=== PATIENT | male | born 1990 | race Caucasian/White ===

== ENCOUNTER 2019-11-21 20:51 | Inpatient (IN) | payer OTHER ==
[~2019-11-21] VITALS: Ht 172.7 cm; Wt 56.2 kg
[2019-11-21] MEDS ORDERED: SODIUM CHLORIDE 0.9% 1000ML 1,000 ML IV STA (21:34)
[2019-11-21] MEDS ORDERED: VANCOMYCIN 1GM/NS 250 ML 250 ML IV STA (21:34)
[2019-11-21] MEDS ORDERED: SODIUM CHLORIDE 0.9% 1000ML 1,000 ML IV SCH (21:45)
[2019-11-21] MEDS ORDERED: CEFTRIAXONE SOD 1 GM/NS 50 ML 50 ML IV ONE (21:45)
[2019-11-21] MEDS ORDERED: ACETAMINOPHEN 325 MG SUPP ONE (22:08)
[2019-11-21] MEDS ORDERED: ACETAMINOPHEN 650 MG SUPP PR ONE (22:08)
[2019-11-21 22:49] LABS: BASOPHILS # (AUTO) 0.1 (0.0-0.1); BASOPHILS % 0.2 % (0.0-1.0); EOSINOPHILS # (AUTO) 0.2 (0.0-0.4); EOSINOPHILS % 0.8 % (0.0-6.0); HEMATOCRIT 35.3 % (38.2-49.6); LYMPHOCYTES % 9.8 % (18.0-39.1); MEAN CORPUSCULAR HEMOGLOBIN 29.6 pg (28-32); MEAN CORPUSCULAR VOLUME 86.9 fL (81-99); MONOCYTES # (AUTO) 1.3 (0.2-0.8); MONOCYTES % 6.4 % (4.4-11.3); NEUTROPHILS # (AUTO) 16.7 (2.1-6.9); NEUTROPHILS % 82.2 % (38.7-80.0); PLATELET COUNT 375 x10e3/uL (140-360); RED BLOOD COUNT 4.06 x10e6/uL (4.3-5.7); RED CELL DISTRIBUTION WIDTH 13.8 % (11.7-14.4)
[2019-11-21 23:05] LABS: ALANINE AMINOTRANSFERASE 130 IU/L (0-55); ALBUMIN 3.7 g/dL (3.5-5.0); ALBUMIN/GLOBULIN RATIO 0.7 (0.8-2.0); ALKALINE PHOSPHATASE 167 IU/L (40-150); ANION GAP 19.9 mmol/L (8-16); BLOOD UREA NITROGEN 38 mg/dL (7-26); BUN/CREATININE RATIO 56 (6-25); CALCIUM 10.6 mg/dL (8.4-10.2); CARBON DIOXIDE 24 mmol/L (22-29); CHLORIDE 95 mmol/L (98-107); CREATININE, SERUM 0.68 mg/dL (0.72-1.25); EST GLOMERULAR FILTRATION RATE > 60 ML/MIN (60-); GLUCOSE 121 mg/dL (74-118); POTASSIUM 3.9 mmol/L (3.5-5.1); SODIUM 135 mmol/L (136-145)
[2019-11-21 23:23] LABS: CLARITY,URINE CLEAR (CLEAR); COLOR,URINE YELLOW (YELLOW)
[2019-11-21 23:24] LABS: BACTERIA,URINE RARE /HPF; BILIRUBIN,URINE NEGATIVE (NEGATIVE); EPITHELIAL CELLS,URINE FEW /LPF; KETONES,URINE NEGATIVE (NEGATIVE); LEUKOCYTE ESTERASE ,URINE NEGATIVE (NEGATIVE); NITRITE,URINE NEGATIVE (NEGATIVE); PROTEIN,URINE DIPSTICK NEGATIVE (NEGATIVE); URINE UROBILINOGEN 0.2 mg/dL (0.2 - 1)
[2019-11-22] VITALS (7 sets, daily range): BP systolic 111–129; BP diastolic 71–89
--- NOTE | 2019-11-22 00:26 | Diagnostic Imaging Report ---
EXAMINATION: CHEST SINGLE (PORTABLE) INDICATION: Fever, hypertension COMPARISON: None FINDINGS: TUBES and LINES: Tracheostomy tube in place, tip projects in the mid intrathoracic trachea. LUNGS: Normal lung volumes. Slightly elevated left hemidiaphragm. Mild central bronchial wall thickening. No consolidations. PLEURA: No pleural effusion or pneumothorax. HEART AND MEDIASTINUM: The cardiomediastinal silhouette is unremarkable. BONES AND SOFT TISSUES: No acute osseous lesion. Soft tissues are unremarkable. UPPER ABDOMEN: No free air under the diaphragm. IMPRESSION: Subtle findings which can be seen with bronchitis. Signed by: Rudy Skelton DO on 11/22/2019 12:24 AM
[2019-11-22] MEDS ORDERED: METOPROLOL TARTRATE INJ 1 MG/ML VIAL IV ONE ×3 (01:15→05:30)
[2019-11-22] MEDS ORDERED: IOPAMIDOL 370 MG/ML 200 ML INFUS..BTL INJ ONE (01:59)
[2019-11-22] MEDS ORDERED: SODIUM CHLORIDE 0.9% 50ML 50 ML ONE (01:59)
--- OUTSIDE RECORDS SUMMARY | 2019-11-22 02:10 | XMS REPORT ---
[facility] Address Unknown Phone Unavailable Care Team Providers Care [employer] Name Role Phone PATRIZIA NICOLAS Unavailable Unavailable Problems This patient has no known problems. Allergies, Adverse Reactions, Alerts This patient has no known allergies or adverse reactions. Medications This patient has no known medications. Results Test Description Test Time Test Comments Text Results Atomic Results Result Comments CHEST SINGLE (PORTABLE) 2019-11-22 00:23:00 [facility] [address] [address] Patient Name: FAVIAN DUKE MR #: [id number] : 1990 Age/Sex: 29/M Req #: [id number] Adm Physician: Ordered by: PATRIZIA NICOLAS DO Report #: [id number] Location: ER Room/Bed: Procedure: [id number] DX/CHEST SINGLE (PORTABLE) Exam Date: 11/21/19 Exam Time: 2237 REPORT STATUS: Signed EXAMINATION: CHEST SINGLE (PORTABLE) I NDICATION: Fever, hypertension COMPARISON: None FINDINGS: TUBES and LINES: Tracheostomy tube in place, tip projects in the mid intrathoracic trachea. LUNGS: Normal lung volumes. Slightly elevated left hemidiaphragm. Mild central bronchial wall thickening. No consolidations. PLEURA: No pleural effusion or pneumothorax. HEART AND MEDIASTINUM: The cardiomediastinal silhouette is unremarkable. BONES AND SOFT TISSUES: No acute osseous lesion. Soft tissues are unremarkable. UPPER ABDOMEN: No free air under the diaphragm. IMPRESSION: Subtle findings which can be seen with bronchitis. Signed by: Rudy Skelton DO on 11/22/2019 12:24 AM Dictated By: RUDY SKELTON DO Transcribed By: GLENNA on 11/22/1923 COPY TO: PATRIZIA NICOLSA DO
[2019-11-22] MEDS ORDERED: CEFTRIAXONE SOD 1 GM/NS 50 ML 50 ML IV ONE ×2 (03:30→06:46)
[2019-11-22] MEDS ORDERED: DEXAMETHASONE SOD PHOS INJ 4 MG/ML VIAL IV ONE (03:30)
[2019-11-22] MEDS ORDERED: METOPROLOL TARTRATE INJ 1 MG/ML VIAL ONE (03:31)
--- NOTE | 2019-11-22 04:02 | Diagnostic Imaging Report ---
EXAM: CT Abdomen and Pelvis WITH contrast INDICATION: Elevated LFTs , fever COMPARISON: None. TECHNIQUE: Abdomen and pelvis were scanned utilizing a multidetector helical scanner from the lung base to the pubic symphysis after administration of IV contrast. Coronal and sagittal reformations were obtained. Routine protocol was performed. Scan was performed when during portal venous phase. IV CONTRAST: 100 mL of Isovue 370 ORAL CONTRAST: None COMPLICATIONS: None RADIATION DOSE: Total DLP: 300 mGy*cm Estimated effective dose: (DLP x 0.015 x size factor) mSv CTDIvol has been reviewed. It is below the limits set by the Radiation Protocol Committee (RPC). Dose modulation, iterative reconstruction, and/or weight based adjustment of the mA/kV was utilized to reduce the radiation dose to as low as reasonably achievable. FINDINGS: LINES and TUBES: It contains gastrostomy tube, tip and balloon in the gastric lumen.. LOWER THORAX: Coarse reticular opacities in the lung bases. HEPATOBILIARY: No focal hepatic lesions. No biliary ductal dilation. GALLBLADDER: No radio-opaque stones or sludge. No wall thickening. SPLEEN: No splenomegaly. PANCREAS: No focal masses or ductal dilatation. ADRENALS: No adrenal nodules KIDNEYS/URETERS: Kidneys enhance symmetrically. No hydronephrosis. No cystic or solid mass lesions. No stones. GI TRACT: No abnormal distention, wall thickening, or evidence of bowel obstruction. Appendix is normal. PELVIC ORGANS/BLADDER: Unremarkable. LYMPH NODES: No lymphadenopathy. VESSELS: Unremarkable. PERITONEUM / RETROPERITONEUM: No free air or fluid. BONES: Healing nondisplaced right lower rib fractures. Unremarkable. SOFT TISSUES: Unremarkable. IMPRESSION: Subtle findings of aspiration in the lung bases. Signed by: Rudy Skelton DO on 11/22/2019 4:00 AM
--- NOTE | 2019-11-22 04:25 | Diagnostic Imaging Report ---
EXAMINATION: Head CT HISTORY: Fever, history of anoxic brain injury, elevated blood pressure COMPARISON: None. TECHNIQUE: Multidetector axial images were obtained without contrast, however the study was performed after recent contrast enhanced abdomen CT performed earlier on the same day from the foramen magnum to the vertex . The images were reconstructed using brain and bone algorithms. Thin section brain images were reformatted into coronal and sagittal planes. Image quality: Motion/streaking artifact limits the evaluation of the skull base and posterior cranial fossa. Dose modulation, iterative reconstruction, and/or weight based adjustment of the mA/kV was utilized to reduce the radiation dose to as low as reasonably achievable. FINDINGS: Parenchyma: 1. Overall poor colin-white matter differentiation, likely related to known anoxic brain injury. 2. No mass or hemorrhage. No CT evidence of acute territorial vascular insult. Extra-axial spaces:No abnormal density. No extra-axial fluid collections Brain volume: Generalized brain atrophy, more, suspected for patient's age, likely the sequela from anoxic brain injury. Ventricles: No hydrocephalus or displacement. Arteries: No density suggestive of thrombus. Dural sinuses: Opacified from recent intravenous contrast injection, grossly patent. Foramen magnum: No mass, Chiari malformation, or basilar invagination. Sella: No obvious mass. Paranasal/mastoid sinuses: Imaged portions unremarkable. Skull/Scalp: No lytic or blastic lesions. No fractures. IMPRESSION: 1. No acute intracranial abnormalities. Particularly no hemorrhage. 2. Moderate brain atrophy, more than what is expected for patient's age. 3. Poor colin-white matter differentiation as detailed above. Signed by: Dr. Gricelda Webb M.D. on 11/22/2019 4:22 AM
[2019-11-22] MEDS ORDERED: ACETAMINOPHEN 650 MG SUPP PR ONE (04:47)
[2019-11-22] MEDS ORDERED: ACETAMINOPHEN 325 MG SUPP ONE (04:47)
[2019-11-22] MEDS ORDERED: ACETAMINOP325 MG/10 PEG (09:46)
[2019-11-22] MEDS ORDERED: ALBUTEROL0.63 MG/3 INH (09:49)
[2019-11-22] MEDS ORDERED: ENOXAPARIN30 MG/0.3 SC (09:50)
[2019-11-22] MEDS ORDERED: FAMOTIDINE20 MG PEG (09:50)
[2019-11-22] MEDS ORDERED: LEVETIRACETAM500 MG PEG (09:51)
[2019-11-22] MEDS ORDERED: METOPROLOL TART50 MG PEG (09:52)
--- NOTE | 2019-11-22 12:19 | NUR ---
Nutrition Intervention Note RD Recommendation(s) for Physician: -TF recommendation via peg when medically feasible: Osmolite 1.2 at 10 ml/hr advance as tolerated to goal rate of 65 ml/hr with 60 ml every water flushed every 4 hours (1872 kcal, 86 gram protein, 1279 ml of fluid) -IVF management and flushes per MD. Plan of Care: RD following, monitoring for tolerance and adequacy. TF recs Nutrition reason for involvement: (peg tube) RD Assessment 11/22: 29 YOM seen within the IMCU. Pt was recently admitted, per nurse pt has trach and peg tube. Nurse reported the pt was on Novasource at 40 ml/hr with 300 ml of water flushed every 4 hours for 22 hours at his NH (1760 kcal, 80 gram protein). Nurse reported the pt does not have hx of dialysis and it is not reported in PMH. Renal labs WNL-will recommend standard formula for now, please re consult RD if renal labs become abnormal. Pt was seen resting, no family at bedside. No past weights in EMR. Will continue to monitor. Principal Problems/Diagnoses: PMH: IN Seizure Disorder Chronic Back Pain Anoxic brain injury/ oct 2019 GI: AbdL flat, soft LBM: not recorded Skin: no pressure ulcer recorded Labs: 11/21: Na 135, Cl 95, BUN 38, Creat .68, Gluc 121, Ca 10.6 Meds: keppra, pepcid Ht: 68 in Wt: 124 lbs BMI: 18.9 kg/m^2 IBW: 154 lbs Malnutrition Evaluation 11/22 The patient does not meet criteria for a specified degree of malnutrition at this time. Will re-evaluate at follow-up as appropriate. Energy intake: -chronic tube feeder Weight loss: -unable to evaluate Fat loss: Mild Muscle loss: Mild Nutrition Prescription (Diet Order): NPO Estimated Nutritional Needs: Calories:0423-4950 kcal/day (25- 35 kcal/kg/day) Weight used : CBW Protein : 56-84 protein/day (1-1.5 gram/kg/day ) Weight used: CBW Diet Adequacy: Not meeting calorie needs, Not meeting protein needs Diet Education Needs Assessment: Diet education not indicated, patient on temporary/transition diet. Nutrition Care Level: mod Nutrition Diagnosis: Inadequate energy intake related to medical condition as evidenced by the pts needs for peg tube to meet nutritional needs. Goal: Patient will meet 75-100% of estimated needs by follow up Progress: N/A Interventions: Composition, Rate, Route, IVF, Prescription medications, Monitoring/Evaluation: -Total energy intake, Total protein intake, Formula/Solution, IVF, Prescription medication Signed: Jenni Eduardo RD, LD
[2019-11-22] MEDS: METOPROLOL TARTRATE 50 MG TAB PEG SCH (16:41)
[2019-11-22] MEDS: LEVETIRACETAM ORAL SOLUTION 500 MG/5 ML SOLN PEG SCH (16:41)
[2019-11-23] VITALS (9 sets, daily range): BP systolic 121–139; BP diastolic 84–102
[2019-11-23] MEDS: METOPROLOL TARTRATE INJ 1 MG/ML VIAL IV PRN (01:29)
[2019-11-23] MEDS: METOPROLOL TARTRATE 50 MG TAB PEG SCH ×2 (10:00→16:44)
[2019-11-23] MEDS: LEVETIRACETAM ORAL SOLUTION 500 MG/5 ML SOLN PEG SCH ×2 (10:00→16:44)
[2019-11-23] MEDS: FAMOTIDINE 20 MG TAB PEG SCH (10:00)
[2019-11-23] MEDS: ENOXAPARIN 30 MG/0.3 ML SYR SC SCH (10:00)
[2019-11-23] MEDS: ACETAMINOPHEN 325 MG/10 ML UDC PEG PRN ×2 (10:00→16:46)
[2019-11-23] MEDS ORDERED: CEFTRIAXONE SOD 1 GM/NS 50 ML 50 ML IV SCH (10:45)
--- NOTE | 2019-11-23 13:15 | NUR ---
Visit made by the Spiritual Care Department Pastoral Visitor, Jamilah Coronado. Pt sleeping soundly and no family present. Pastoral Visitor left a card describing availability of retail pharmacist and instructions on how to contact a retail pharmacist. ITZEL VIEYRA [employer] Spiritual Care Department O: [phone] Pager: [phone] ([phone] number calling from)
[2019-11-23] MEDS: CEFEPIME 1GM/NS 0.9% 50 ML 50 ML IV SCH (18:35)
--- NOTE | 2019-11-23 20:34 | Consultation ---
DATE OF CONSULTATION: 11/23/2019 REASON FOR CONSULTATION: Fever, leukocytosis, concerned about infection, concerned about sepsis. HISTORY OF PRESENT ILLNESS: This patient who is a 29-year-old male back in October had anoxic encephalopathy episode. The pain is noncommunicative, contracted, and has been recently in the hospital on and off. The patient apparently has history of seizure, was treated prophylactic with Keppra. The patient who is encephalopathic does not really provide any further information, but according to the record, the patient has been in the hospital for some time with fever, leukocytosis, and had extensive workup, all was negative. I was asked to see him. The patient was in the group home, transferred here with fever and chills as mentioned above. No family at the bedside. Apparently, had a history of noncompliance before. Apparently, he had recently anoxic brain injury. PAST MEDICAL HISTORY: As above. PAST SURGICAL HISTORY: As above. ALLERGIES: NKA. SOCIAL HISTORY: Currently, there is no smoking, drug abuse, or alcohol abuse. FAMILY HISTORY: Could not be obtained. REVIEW OF SYSTEMS: Could not be obtained. He is totally confused. According to nursing team, there is no rash and no swelling or redness. He has very superficial ulcer that is also on the buttock area contraction. There is no diarrhea. ALLERGIES: PENICILLIN, BUT NOT SURE WHAT HAPPENED. LABORATORY DATA: White count 20.29, hemoglobin 12, hematocrit 35, his platelets 375. The diff showing he has monos 1.3, eosinophils 0.2. Sodium 135 potassium 3.9, glucose 121. ALT 80, AST 80. Influenza A/B is negative. Blood cultures, no growth in [address] He had a [address] of abdomen and pelvis, which showed possibly aspiration pneumonia, but otherwise unremarkable. PHYSICAL EXAMINATION: GENERAL: Noncommunicative. VITAL SIGNS: Stable, running fever. HEENT: Not icteric. NECK: Supple. CHEST: A few crackles bilateral at the bases. COR: S1, S2. No murmur. ABDOMEN: Soft. Bowel sounds present. No tenderness. EXTREMITIES: No edema. SKIN: No rash. IMPRESSION: Fever, leukocytosis, concerned about infection, but the aspiration pneumonia does not seem to be too massive. We will put him back on vancomycin and cefepime. We will get the blood cultures. I am concerned if it could be drug related to Keppra. I suggested discontinuing Keppra. Neurology was consulted. Consider to workup for seizure. We will follow with you depending on blood cultures and clinical progress since I stopped the Keppra. We will get CBC with manual diff. We will also obtain amylase and lipase. We will follow. MD OSMAR Parsons/MODMando /[id number]
[2019-11-23] MEDS: VANCOMYCIN 1GM/NS 250 ML 250 ML IV SCH (21:26)
--- NOTE | 2019-11-23 22:27 | NUR ---
PT IS TRANSFERRED FROM [facility] .PT IS APHASIC LETHARGIC .BARLEY EYES OPEN .PT HAS PEG TUBE OSMOLITE RUNNING AT 45 ML/HR /PT HAS TRACH .SACRUM UNSTABLE .ON AUSCULTATION SOUNDS BRONCHI .CALL LIHT WITH IN REACH .CONTINUE TO MONITOR
--- NOTE | 2019-11-23 23:10 | NUR ---
patient transferred to [facility]
[2019-11-24] VITALS (8 sets, daily range): BP systolic 116–171; BP diastolic 73–97
[2019-11-24] MEDS: ACETAMINOPHEN 325 MG/10 ML UDC PEG PRN (00:04)
[2019-11-24] MEDS ORDERED: SODIUM CHLORIDE 0.9% 250ML 250 ML ONE (01:48)
[2019-11-24] MEDS: METOPROLOL TARTRATE INJ 1 MG/ML VIAL IV PRN (02:01)
--- NOTE | 2019-11-24 05:59 | NUR ---
PT HAD TEM 101.7 AND GIVEN LIQUID TYLENOL AND TEM REDUCED TO 99.7 .SUCTIONED BY THE RT .PEG TUBE INTACT AND TOLERATING THE FEEDING SACRUM UN STAGEABLE .CALL LIGHT WITH IN REACH .CONTINUE TO MONITOR
[2019-11-24] MEDS: CEFEPIME 1GM/NS 0.9% 50 ML 50 ML IV SCH ×2 (06:00→16:59)
--- NOTE | 2019-11-24 07:29 | NUR ---
BEDSIDE REPORT GIVEN TO THE ONCOMING NURSE
[2019-11-24 08:47] LABS: BASOPHILS # (AUTO) 0.1 (0.0-0.1); BASOPHILS % 0.5 % (0.0-1.0); EOSINOPHILS # (AUTO) 0.1 (0.0-0.4); EOSINOPHILS % 0.9 % (0.0-6.0); HEMATOCRIT 32.9 % (38.2-49.6); HEMOGLOBIN 11.1 g/dL (14.0-18.0); LYMPHOCYTES # (AUTO) 1.9 (1.0-3.2); LYMPHOCYTES % 17.7 % (18.0-39.1); MEAN CORPUSCULAR HEMOGLOBIN 29.8 pg (28-32); MEAN CORPUSCULAR HGB CONC 33.7 g/dL (31-35); MEAN CORPUSCULAR VOLUME 88.4 fL (81-99); MONOCYTES # (AUTO) 0.9 (0.2-0.8); MONOCYTES % 8.5 % (4.4-11.3); NEUTROPHILS # (AUTO) 7.8 (2.1-6.9); NEUTROPHILS % 72.2 % (38.7-80.0); PLATELET COUNT 253 x10e3/uL (140-360); RED BLOOD COUNT 3.72 x10e6/uL (4.3-5.7)
[2019-11-24] MEDS: ACETAMINOPHEN 650 MG SUPP PR PRN ×2 (08:47→17:20)
[2019-11-24] MEDS: VANCOMYCIN 1GM/NS 250 ML 250 ML IV SCH ×2 (09:00→21:15)
[2019-11-24] MEDS: ENOXAPARIN 30 MG/0.3 ML SYR SC SCH (09:02)
[2019-11-24] MEDS: FAMOTIDINE 20 MG TAB PEG SCH (09:02)
[2019-11-24] MEDS: METOPROLOL TARTRATE 50 MG TAB PEG SCH ×2 (09:02→17:00)
[2019-11-24 09:07] LABS: BLOOD UREA NITROGEN 23 mg/dL (7-26); BUN/CREATININE RATIO 40 (6-25); CALCIUM 9.7 mg/dL (8.4-10.2); CARBON DIOXIDE 24 mmol/L (22-29); CHLORIDE 108 mmol/L (98-107); CREATININE, SERUM 0.57 mg/dL (0.72-1.25); EST GLOMERULAR FILTRATION RATE > 60 ML/MIN (60-); GLUCOSE 130 mg/dL (74-118); SODIUM 143 mmol/L (136-145); VANCOMYCIN,TROUGH 4.5 ug/mL (5.0-10.0)
--- NOTE | 2019-11-24 12:32 | Diagnostic Imaging Report ---
EXAM: US LIVER DATE: 11/24/2019 12:00 AM INDICATION: Elevated LFTs COMPARISON: CT abdomen/pelvis from 11/22/2019 FINDINGS: The visualized pancreas appears unremarkable. The liver is normal in size measuring 15.6 cm in length. Hepatic echogenicity is within normal limits. No focal hepatic abnormality is identified. The main portal vein is patent with antegrade flow and diameter of 0.9 cm, within normal limits. The gallbladder is unremarkable. There is no evidence for cholelithiasis, gallbladder wall thickening, or pericholecystic fluid. There is no intra or extra hepatic biliary ductal dilatation. The common bile duct measures 4 mm. Sonographic Hamilton's sign is negative. The right kidney is normal in size measuring 11.9 cm in length with normal cortical thickness and echogenicity. There is no evidence for solid renal mass, hydronephrosis, or shadowing calculi. The visualized portions the IVC and aorta are within normal limits. There is no ascites visualized within the right upper quadrant. IMPRESSION: Unremarkable right upper quadrant ultrasound examination. Signed by: Dr. Josiah Lopez MD on 11/24/2019 12:30 PM
--- NOTE | 2019-11-24 19:58 | NUR ---
RECEIVED PT IN BED .APHASIC .OPEN EYES .PT IS ON TUBE FEEDING AND TRACH ,CALL LIGHT WITH IN REACH .CONTINUE TO MONITOR
[2019-11-25] VITALS (8 sets, daily range): BP systolic 115–143; BP diastolic 81–100
--- NOTE | 2019-11-25 01:13 | Consultation ---
DATE OF CONSULTATION: 11/24/2019 Neurology Consultation HISTORY OF PRESENT ILLNESS: A 29-year-old male I am seeing for anoxic brain injury secondary to overdose. Clear concern about the patient with possible underlying the patient is on Keppra 750 p.o. b.i.d. per PEG. He presents with fever, leukocytosis. Unable to give any past medical history, who is noncommunicative state. He has anoxic brain injury, diffuse cortical injury and is contracted throughout. The past medical history, social history, allergies, not able to the patient to his clinical status as his review of systems. PHYSICAL EXAMINATION: VITAL SIGNS: He is currently afebrile. His pulse is 86, his blood pressure is 134/78. GENERAL: He is contracted, diffuse contracted state. HEENT: His pupils are dilated at 4 mm, but reactive to light. His extraocular muscles wonder and they do not focus on the examiner did wonders spontaneously. He does not blink to threat. NECK: Somewhat increased tone. Trachea is midline. His arms are in flexed position and his legs are in extended position. Also increased tone. CARDIOVASCULAR: Regular rate and rhythm. PULMONARY: Clear. ABDOMEN: Soft, nontender. His PEG tube in place. SKIN: No rash is noted. There is significant muscle atrophy noted on exam. ASSESSMENT AND PLAN: I am seeing the patient for possible epilepsy as well as the neurocognitive dysfunction, the history of seizures and the question when he can be maintain on Keppra. May avoid the Keppra why because of the seizures. We are going to get an EEG. If the EEG is normal, I do think we can discontinue Keppra safely. I also get an MRI of the brain to evaluate for degree and extent of neurocognitive injury, so this time we are going to get an EEG one hour study and we are going to get a MRI of the brain without contrast to evaluate for cortical injury and we will go from there. LORAINE HINSON MD RR/MODL /[id number]
[2019-11-25] MEDS: CEFEPIME 1GM/NS 0.9% 50 ML 50 ML IV SCH ×2 (06:00→17:25)
[2019-11-25 06:33] LABS: ALBUMIN 3.1 g/dL (3.5-5.0); BILIRUBIN,DIRECT 0.2 mg/dL (0.0-0.5)
--- NOTE | 2019-11-25 06:38 | NUR ---
PT RESTING TOLERATING THE FEEDING AND INCREASED THE FEEDING TO 50 CC/HR .GIVEN BED BATH .CALL LIGHT WITH IN REACH .CONTINUE TO MONITOR
--- NOTE | 2019-11-25 06:59 | NUR ---
BEDSIDE REPORT GIVEN TO THE ONCOMING NURSE
[2019-11-25] MEDS: VANCOMYCIN 1GM/NS 250 ML 250 ML IV SCH (08:49)
[2019-11-25] MEDS: METOPROLOL TARTRATE 50 MG TAB PEG SCH ×2 (08:49→17:24)
[2019-11-25] MEDS: ENOXAPARIN 30 MG/0.3 ML SYR SC SCH (08:50)
[2019-11-25] MEDS: FAMOTIDINE 20 MG TAB PEG SCH (08:50)
--- NOTE | 2019-11-25 08:50 | NUR ---
s: no significant neuro changes vs: 110 121/81 98.1 GENERAL: He is contracted, diffuse contracted state with increased muscle tone HEENT: His pupils are dilated at 4 mm, but reactive to light. His extraocular muscles wonder and they do not focus on the examiner, they wander and saccade spontaneously. He does not blink to threat. NECK: Somewhat increased tone. Trachea is midline. His arms are in flexed position and his legs are in extended position. Also increased tone. CARDIOVASCULAR: Regular rate and rhythm. PULMONARY: Clear. ABDOMEN: Soft, nontender. His PEG tube in place. SKIN: No rash is noted. There is significant muscle atrophy noted on exam. a.p anoxic brai ninjury eeg - if not evidence of seizures continue to decrease AED tolerated initial decrease of keppra without issue mri brain pending outpt placement due toanoxic brain injury may consider hyperbaric therapy or transcranial direct current stimu botox for spasticity, splinting .
[2019-11-25] MEDS: LEVETIRACETAM ORAL SOLUTION 500 MG/5 ML SOLN PEG SCH ×2 (08:56→21:03)
[2019-11-25] MEDS: VANCOMYCIN HCL 1.5 GM in SODIUM CHLORIDE 0.9% 250ML 300 ML IV SCH ×2 (11:30→23:32)
--- NOTE | 2019-11-25 14:09 | Diagnostic Imaging Report ---
MRI BRAIN WO HISTORY: Anoxic brain injury COMPARISON: Head CT 11/22/2019 TECHNIQUE: Sagittal T2, axial T2, axial T1, axial T2/FLAIR, axial gradient echo (or susceptibility weighted), coronal T2/FLAIR, and axial diffusion weighted MR images of the brain were obtained without contrast. Motion artifacts obscure some details. DISCUSSION: Scalp/bone marrow: Unremarkable. Brain sulci: Prominent. Ventricles: Compensatory dilatation. The temporal horns are prominent. Extra-axial spaces: No masses or fluid collections. Parenchyma: Mild diffusion restriction (slightly bright on DWI, dark to isointense on ADC) throughout the bilateral cerebellar cortices, basal ganglia, occipital poles, and paracentral lobules is associated with corresponding T2/FLAIR hyperintensity. This is compatible with diffuse subacute cytotoxic edema/anoxic brain injury. There is associated T1 hyperintensity in the lentiform nuclei. There is no significant mass effect or brain herniation. Otherwise, no mass or hemorrhage is seen. Vessels: Normal flow voids in major arteries and veins. Sellar/Suprasellar region: No abnormalities. Craniocervical junction: No abnormalities. Incidental findings: Small bilateral mastoid effusions are present. IMPRESSION: 1. Mild diffuse cytotoxic edema throughout the bilateral cerebellar cortices, basal ganglia, occipital poles, and paracentral lobules is compatible with anoxic brain injury. No significant mass effect. 2. Mild generalized cerebral volume loss with disproportionate hippocampal volume loss. Signed by: Dr. Rich Wolf M.D. on 11/25/2019 2:06 PM
--- NOTE | 2019-11-25 19:10 | NUR ---
RECEIVED THE PATIENT IN REPORT.LYEING IN THE BED.EYES OPEN .ON TRAC.COLLAR.TELEMONITOR AND CONTD.PULSE OXY IN PLACE.
[2019-11-25] MEDS: METOPROLOL TARTRATE INJ 1 MG/ML VIAL IV PRN (23:30)
[2019-11-26] VITALS (7 sets, daily range): BP systolic 119–139; BP diastolic 75–91
[2019-11-26] MEDS: ACETAMINOPHEN 650 MG SUPP PR PRN (00:18)
--- NOTE | 2019-11-26 00:46 | NUR ---
Had a small amount of Bowelmovement.cleaned and diaper changed.applied allevyn foam on sacral wound.on peg tube feeding.tolerates well.frequently doing suction.keep monitor the patient.
--- NOTE | 2019-11-26 01:00 | NUR ---
NEW IV STARTED TO RAC#20 G.TEMP.NOTED 99.5
[2019-11-26] MEDS: CEFEPIME 1GM/NS 0.9% 50 ML 50 ML IV SCH ×2 (05:47→16:20)
--- NOTE | 2019-11-26 06:00 | NUR ---
Residual checked.nothing.tolerate the feed.
--- NOTE | 2019-11-26 07:00 | NUR ---
Bed side shift report given to oncoming Rn.
[2019-11-26] MEDS: METOPROLOL TARTRATE 50 MG TAB PEG SCH ×2 (08:16→16:20)
[2019-11-26] MEDS: LEVETIRACETAM ORAL SOLUTION 500 MG/5 ML SOLN PEG SCH (08:16)
[2019-11-26] MEDS: FAMOTIDINE 20 MG TAB PEG SCH (08:17)
[2019-11-26] MEDS: ENOXAPARIN 30 MG/0.3 ML SYR SC SCH (08:17)
--- NOTE | 2019-11-26 09:55 | NUR ---
eeg report: 20 min study reviewed in bipolar, transverse and referential montage. 10/20 international electrode placement system used EEG - 3-5 hz diffuse slow pattern with poor reactivity throughout, attenuated <20 mV with intermittnet higher amplitude delta waves EEG interprestation This eeg shows generalized attenuated diffuse slow pattern. Consistant with severe encephalopathy and possibly comatose vs vegetative state, but no epileptogenicity is noted
--- NOTE | 2019-11-26 09:59 | NUR ---
s: no acute events discussed case w/ father at length Vs: 109 99.9 128/90 tachycardic cta trached eomi pupils 5mm but react to direct light face symmetric does not track or look towards flashing light increased muscle tone in neck arms and legs toes upgpoing does not follow commands a/p anoxic brain injury, cerebellar injury, occipital and temporal lobe atrophy discussed case w/ family at length, patient in persistant vegetative state but may reach a degree of cognizance w/ time and therapy discussed transcranial direct current stim amantadien, dopaminergics, depakote, stimulants, ambien as therapeutic options but won't initiate at this time. discussed [facility] as rehab recovery option EEG negative for seizure dc keppra patient iwll need 24 hour care, likely best case scenario, severe visual deficit, motor dysfunction and memory difficulty
[2019-11-26] MEDS: VANCOMYCIN HCL 1.5 GM in SODIUM CHLORIDE 0.9% 250ML 300 ML IV SCH ×2 (11:30→23:40)
[2019-11-26] MEDS: ACETAMINOPHEN 325 MG/10 ML UDC PEG PRN (16:20)
--- NOTE | 2019-11-26 18:01 | NUR ---
Nutrition Intervention Note RD Recommendation(s) for Physician: Osmolite 1.2 is currently out of stock; therefore, Osmolite 1.0 is being substituted in the meantime. Recommend Osmolite 1.0 @ goal rate of 80 mL/hr (provides 1920 kcal, 85 g protein, and 1617 mL water) -When Osmolite 1.2 is in stock, recommend goal rate of 65 mL/hr (provides 1872 kcal, 87 g protein, and 1279 mL) -IVF management and water flushes per MD. Plan of Care: RD following, monitoring for tolerance and adequacy. Nutrition reason for involvement: follow up RD Assessment 11/26: Follow up. Pt has been tolerating tube feeding per RN note. Osmolite 1.2 is currently out of stock; therefore, Osmolite 1.0 is being substituted in the meantime. Recommend Osmolite 1.0 @ goal rate of 80 mL/hr until Osmolite 1.2 is in stock. Informed RN. Will continue to monitor. 11/22: 29 YOM seen within the IMCU. Pt was recently admitted, per nurse pt has trach and peg tube. Nurse reported the pt was on Novasource at 40 ml/hr with 300 ml of water flushed every 4 hours for 22 hours at his NH (1760 kcal, 80 gram protein). Nurse reported the pt does not have hx of dialysis and it is not reported in PMH. Renal labs WNL-will recommend standard formula for now, please re consult RD if renal labs become abnormal. Pt was seen resting, no family at bedside. No past weights in EMR. Will continue to monitor. Principal Problems/Diagnoses: PMH: ND, Seizure Disorder, Chronic Back Pain, Anoxic brain injury/ oct 2019 GI: abdomen soft, non-tender LBM: not recorded Skin: unstageable pressure ulcer -sacrum Labs: 11/26: Na 143, BUN 23, Creat 0.57, Glu 130 11/21: Na 135, Cl 95, BUN 38, Creat .68, Gluc 121, Ca 10.6 Meds: metroprolol, vancomycin, NaCl Ht: 68 in Wt: 124 lbs BMI: 18.9 kg/m^2 IBW: 154 lbs Malnutrition Evaluation 11/22 The patient does not meet criteria for a specified degree of malnutrition at this time. Will re-evaluate at follow-up as appropriate. Energy intake: -chronic tube feeder Weight loss: -unable to evaluate Fat loss: Mild Muscle loss: Mild Nutrition Prescription (Diet Order): NPO Estimated Nutritional Needs: Calories:5950-1691 kcal/day (25- 35 kcal/kg/day) Weight used : CBW Protein : 56-84 protein/day (1-1.5 gram/kg/day ) Weight used: CBW Diet Adequacy: current tube feed order does not meet pt's calorie and protein needs Diet Education Needs Assessment: Diet education not indicated, patient on temporary/transition diet. Nutrition Care Level: moderate Nutrition Diagnosis: Inadequate energy intake related to medical condition as evidenced by the pts needs for peg tube to meet nutritional needs. Goal: Patient will meet 75-100% of estimated needs by follow up Progress: progressing Interventions: TF - Composition, Rate, Route Monitoring/Evaluation: -Total energy intake, Total protein intake, Formula/Solution Signed: Argentina Marino RD, LD
--- NOTE | 2019-11-26 19:05 | NUR ---
RECEIVED THE PATIENT IN REPORT.LYEING IN THE BED.NO RESP.DISTRESS NO PAIN VOICED.BED LOCKED AND IN LOWEST POSITION.PHONE AND CALL LIGHT WITHIN REACH.INSTRUCTED TO CALL FOR ASSISTANCE NEEDED.STABLE CONDITION. Addendum: 11/26/19 at 2002 by Jaclyn Morocho RN ERROR
--- NOTE | 2019-11-26 19:10 | NUR ---
RECEIVED THE PATIENT IN REPORT.LYEING IN THE BED.NO RESP.DISTRESS .BED LOCKED AND IN LOWEST POSITION.PHONE AND CALL LIGHT WITHIN REACH.ON TRACH COLLAR.OSMOLITE RUNNING @ 55ML/HR.KEEP MONITOR THE PATIENT.
[2019-11-26] MEDS: METOPROLOL TARTRATE INJ 1 MG/ML VIAL IV PRN (21:45)
--- NOTE | 2019-11-26 23:48 | NUR ---
Patient is non communicative,contracted.had a small amount of bowel movement.cleansed,diaper changed.allevyn foam changed.tolerates tube feeding.
[2019-11-27] VITALS (7 sets, daily range): BP systolic 116–139; BP diastolic 72–90
[2019-11-27] MEDS: ACETAMINOPHEN 325 MG/10 ML UDC PEG PRN ×2 (04:45→22:37)
[2019-11-27] MEDS: CEFEPIME 1GM/NS 0.9% 50 ML 50 ML IV SCH ×2 (06:08→18:32)
[2019-11-27] MEDS: METOPROLOL TARTRATE INJ 1 MG/ML VIAL IV PRN (06:17)
--- NOTE | 2019-11-27 07:00 | NUR ---
BED SIDE SHIFT REPORT GIVEN TO ONCOMING RN.STABLE CONDITION.
--- NOTE | 2019-11-27 07:05 | NUR ---
RECEIVED BEDSIDE REPORT FROM NIGHT NURSE. PATIENT RESTING AT THIS TIME, NO VISIBLE SIGNS OF DISTRESS NOTED. TRACH WITH COLLAR IN PLACE, CALL LIGHT WITHIN REACH.
[2019-11-27] MEDS: METOPROLOL TARTRATE 50 MG TAB PEG SCH ×2 (10:08→18:31)
[2019-11-27] MEDS: ENOXAPARIN 30 MG/0.3 ML SYR SC SCH (10:08)
[2019-11-27] MEDS: FAMOTIDINE 20 MG TAB PEG SCH (10:08)
[2019-11-27] MEDS: VANCOMYCIN HCL 1.5 GM in SODIUM CHLORIDE 0.9% 250ML 300 ML IV SCH ×2 (12:15→23:19)
--- NOTE | 2019-11-27 16:52 | Progress Note ---
DATE: 11/27/2019 Internal Medicine Progress Note SUBJECTIVE: The patient is comatose. PHYSICAL EXAMINATION: VITAL SIGNS: Blood pressure 128/74, temperature 99.7, heart rate is 117 per minute, respiratory rate is 22 per minute, oxygen saturation 100%. HEART: Showed regular rhythm. Normal S1, S2 sound. LUNGS: Clear bilaterally. ABDOMEN: Soft. Has a PEG tube in place. He had a tracheostomy in place. EXTREMITIES: Show decreased muscle mass on both legs. LABORATORY DATA: On the BMP; sodium 143, potassium 4.0, chloride 108, CO2 24, BUN 23, creatinine 0.57, glucose 130. CBC; white blood cell count 10.7, hemoglobin 11.1, hematocrit 32.9, platelet count 253,000. AST 59, ALT 57, total bilirubin 0.4, alkaline phosphatase 113. Hepatitis profile is negative. CT of the abdomen showed no significant abnormality. Chest x-ray showed no evidence of pneumonia. MRI of the brain showed evidence of anoxic encephalopathy due to findings of brain edema. IMPRESSION: 1. Anoxic encephalopathy. 2. Dysphagia, status post PEG tube placement. 3. Acute respiratory failure, status post tracheostomy. 4. Elevated liver function tests. 5. Acute bronchitis. PLAN OF TREATMENT: Continue oxygen through tracheostomy. Continue with a PEG tube feeding. Continue albuterol q.4 hours, cefepime 1 g IV q.12 hours, vancomycin 1 g IV twice a day, Lovenox 30 mg subcutaneously daily for DVT prophylaxis. Continue Tylenol 650 mg q.6 hours as needed for pain or fever, Pepcid 20 mg daily, metoprolol 10 mg IV q.6 hours as needed, metoprolol 50 mg twice a day, Tylenol 650 mg q.4 hours as needed, a heel protector. Labs have been reviewed. Production Editor reports have been reviewed. Time spent around 35 minutes. MD ASHLEIGH Stevens/STEPHANIE /[id number]
--- NOTE | 2019-11-27 17:20 | NUR ---
s: no acute events discussed case w/ father at length Vs: 102 98.9 128/90 tachycardic cta trached eomi pupils 5mm but react to direct light face symmetric does not track or look towards flashing light increased muscle tone in neck arms and legs toes upgpoing does not follow commands a/p anoxic brain injury, cerebellar injury, occipital and temporal lobe atrophy discussed case w/ family at length, patient in persistant vegetative state but may reach a degree of cognizance w/ time and therapy discussed transcranial direct current stim amantadien, dopaminergics, depakote, stimulants, ambien as therapeutic options but won't initiate at this time. discussed [facility] as rehab recovery option EEG negative for seizure dc keppra patient will need 24 hour care, likely best case scenario, severe visual deficit, motor dysfunction and memory difficulty
--- NOTE | 2019-11-27 19:10 | NUR ---
BEDSIDE SHIFT REPORT GIVEN TO ONCOMING NURSE. PATIENT RESTING IN BED WITH NO VISIBLE SIGNS OF DISTRESS NOTED AT THIS TIME. TRACH COLLAR IN PLACE. CALL LIGHT WITHIN REACH.
--- NOTE | 2019-11-27 19:14 | NUR ---
Received change of shift report from AM nurse. Walking rounds completed.
[2019-11-28] VITALS (46 sets, daily range): BP systolic 103–157; BP diastolic 71–104
--- NOTE | 2019-11-28 | NUR ---
Patient o2 sat drop to 80-90. Patient suctioned with inline suction system. Sats back up to 99%. Continue monitor. Reposition patient in bed with HOB elevated [id number]. HR up and down 102-130. Continue monitor. certified veterinary technician called.
[2019-11-28] MEDS: METOPROLOL TARTRATE INJ 1 MG/ML VIAL IV PRN ×2 (03:00→05:15)
--- NOTE | 2019-11-28 03:31 | NUR ---
Patient sat drop 40,50,60,70 and 80. Resp tech and Julia charge nurse called. Rapid called. S/W Dr Jung who is covering Haney. Orders received. Called Dr Blum as consult. Dr Dailey ER doctor s/w Dr Jung and Dr Blum. Patient to transfer to ICU
--- NOTE | 2019-11-28 03:53 | NUR ---
Rapid response called on patient. Due to o2 sat dropping. Called and s/w Dr Jung and received orders. called and informed pt will be moved to ICU 194.
--- NOTE | 2019-11-28 04:00 | NUR ---
RECEIVED FROM [facility] STATUS POST RAPID RESPONSE. PATIENT UNRESPONSIVE WITH ANOXIC BRAIN INJURY AT BASELINE. TRACHEOSTOMY CONNECTED TO VENTILATOR WITH SUBSEQUENT INCREASE IN OXYGEN SATURATION
--- NOTE | 2019-11-28 04:27 | Diagnostic Imaging Report ---
EXAMINATION: CHEST SINGLE (PORTABLE) COMPARISON: Chest x-ray 11/21/2019, CT abdomen 11/22/2019 INDICATION: ^low oxygen saturation ^[id number] ^0400 DISCUSSION: Frontal view of the chest obtained at 0356 hours. HEART AND MEDIASTINUM: The cardiomediastinal silhouette is unremarkable. LINES: Tracheostomy is midline LUNGS: The right lung is well-inflated and clear. New diffuse airspace opacities in the left mid and lower lung zones with stable mild elevation of the left diaphragm. PLEURA: No pleural effusion or pneumothorax. BONES AND SOFT TISSUES: No focal osseous lesion. The soft tissues are normal. IMPRESSION: New airspace opacities in the left lung may represent pneumonia in the appropriate clinical setting. Stable elevation of the left diaphragm. Signed by: Dr. Karla Gilbert MD on 11/28/2019 4:25 AM
--- NOTE | 2019-11-28 04:54 | NUR ---
Pulmonary/Critical Care [id number]
[2019-11-28] MEDS ORDERED: DEXTROSE 5% 1,000 ML IV SCH (05:00)
[2019-11-28 05:08] LABS: BASOPHILS # (AUTO) 0.1 (0.0-0.1); BASOPHILS % 0.4 % (0.0-1.0); EOSINOPHILS # (AUTO) 0.3 (0.0-0.4); HEMATOCRIT 35.9 % (38.2-49.6); HEMOGLOBIN 12.1 g/dL (14.0-18.0); LYMPHOCYTES # (AUTO) 1.6 (1.0-3.2); LYMPHOCYTES % 12.6 % (18.0-39.1); MEAN CORPUSCULAR HEMOGLOBIN 29.8 pg (28-32); MEAN CORPUSCULAR HGB CONC 33.7 g/dL (31-35); MEAN CORPUSCULAR VOLUME 88.4 fL (81-99); MONOCYTES # (AUTO) 0.7 (0.2-0.8); MONOCYTES % 5.5 % (4.4-11.3); NEUTROPHILS # (AUTO) 10.1 (2.1-6.9); NEUTROPHILS % 78.9 % (38.7-80.0); PLATELET COUNT 365 x10e3/uL (140-360); RED BLOOD COUNT 4.06 x10e6/uL (4.3-5.7); RED CELL DISTRIBUTION WIDTH 14.5 % (11.7-14.4)
[2019-11-28] MEDS ORDERED: LACTATED RINGER'S 1,000 ML ONE (05:13)
[2019-11-28] MEDS ORDERED: LACTATED RINGER'S 1,000 ML IV ONE (05:15)
[2019-11-28 05:29] LABS: ALANINE AMINOTRANSFERASE 94 IU/L (0-55); ALBUMIN 3.3 g/dL (3.5-5.0); ALBUMIN/GLOBULIN RATIO 0.8 (0.8-2.0); ALKALINE PHOSPHATASE 133 IU/L (40-150); ANION GAP 14.7 mmol/L (8-16); BLOOD UREA NITROGEN 29 mg/dL (7-26); BUN/CREATININE RATIO 51 (6-25); CALCIUM 9.5 mg/dL (8.4-10.2); CARBON DIOXIDE 21 mmol/L (22-29); CHLORIDE 107 mmol/L (98-107); CREATININE, SERUM 0.57 mg/dL (0.72-1.25); EST GLOMERULAR FILTRATION RATE > 60 ML/MIN (60-); GLUCOSE 131 mg/dL (74-118); POTASSIUM 3.7 mmol/L (3.5-5.1); SODIUM 139 mmol/L (136-145)
[2019-11-28] MEDS: CEFEPIME 1GM/NS 0.9% 50 ML 50 ML IV SCH ×2 (05:47→17:40)
[2019-11-28] MEDS: METOPROLOL TARTRATE 50 MG TAB PEG SCH ×2 (06:21→17:39)
[2019-11-28 07:32] LABS: THYROID STIMULATING HORMONE 2.253 uIU/mL (0.350-4.940)
[2019-11-28] MEDS: FAMOTIDINE 20 MG TAB PEG SCH (08:32)
[2019-11-28] MEDS: ACETAMINOPHEN 325 MG/10 ML UDC PEG PRN (08:32)
[2019-11-28] MEDS: ENOXAPARIN 30 MG/0.3 ML SYR SC SCH (08:32)
--- NOTE | 2019-11-28 10:21 | NUR ---
s: transferred to icu for tacycardia, decreased o2 sats Vs: 112 101.7 108/89 tachycardic cta trached eomi pupils 5mm but react to direct light face symmetric does not track or look towards flashing light eyes wander moves arms spontanously but not purposefully increased muscle tone in neck arms and legs toes upgpoing does not follow commands a/p anoxic brain injury, cerebellar injury, occipital and temporal lobe atrophy discussed case w/ family at length, patient in persistant vegetative state but may reach a degree of cognizance w/ time and therapy discussed transcranial direct current stim amantadien, dopaminergics, depakote, stimulants, ambien as therapeutic options but won't initiate at this time. discussed [facility] as rehab recovery option EEG negative for seizure dc keppra patient will need 24 hour care, likely best case scenario, severe visual deficit, motor dysfunction and memory difficulty no evidence seizure disorder minimilly conciouse state vs vegetative state
[2019-11-28] MEDS: ACETAMINOPHEN 650 MG SUPP PR PRN (10:50)
[2019-11-28 11:27] LABS: FREE THYROXINE INDEX 3.1148 (1.4-3.8)
--- NOTE | 2019-11-28 11:39 | Consultation ---
DATE OF CONSULTATION: 11/28/2019 Pulmonary Critical Care Medicine Consult REASON FOR REFERRAL: Acute respiratory failure. HISTORY OF PRESENT ILLNESS: Mr. Toth is a pleasant 29-year-old gentleman with acute respiratory failure. I was called emergently to see the patient as there was failure to oxygenate the patient and oxygen saturation as low as 37% saturation. The patient apparently was hospitalized on November 22, 2019 with fever. The patient had evaluation upon presentation as he had heart rate 133 and blood pressure 172/95, and 101.4 temperature. The patient has had pretty much persistent tachycardia during this hospitalization and his fevers are difficult to subdue. Over the last day, temperature maximum was 100.3. In the meantime, the patient has been undergoing combined Infectious Disease as well as neurological workup and he has been on antibiotics in the meanwhile while medicines have been adjusted for the possibility of central fevers. The patient was on tube feeding as well as routine care when he had the acute episode of hypoxemia. After aggressive suctioning, he was unable to be resuscitated in terms of oxygen saturation. Emergency room doctor arrived on scene and could not fix oxygenation issue. The patient with emergency activation where I was consulted, asked to come in emergently, which I did. The patient urgently moved to the ICU. There were some tube interface issues that were rectified as well as and there was some resuscitation and recovery of oxygen status. PAST MEDICAL HISTORY: Acute kidney injury and recent ATN with eventual recovery, recent cardiac arrest, recent anoxic brain injury most likely due to overdose, shock, resolved, recent aspiration pneumonia, recent tracheostomy, recent PEG tube. At some point, he had a Vj catheter. PAST SURGICAL HISTORY: History of back surgery. MEDICATIONS: Medication list reviewed per the chart record. ALLERGIES: PENICILLINS. SOCIAL HISTORY: The patient reportedly current everyday smoker, not using alcohol, single per outside note obtained. The patient unable to provide medical history. FAMILY HISTORY: Noncontributory. REVIEW OF SYSTEMS: Cannot get as he is intubated. OBJECTIVE: VITAL SIGNS: The patient is unstable, still with lot of tachycardia, critical in the ICU now. GENERAL: He is mostly synchronous with the ventilator, not responsive. HEENT: Normocephalic, atraumatic. NECK: Supple. Throat midline. LUNGS: Bilateral air entry, few rhonchi. CARDIOVASCULAR: S1, S2. No murmurs, rubs, or gallops. ABDOMEN: Soft, nontender. EXTREMITIES: No clubbing. No cyanosis. There is no edema. INTEGUMENT: No rash except for faint stippling on his chest, possibly for moisture, integument seen, mostly intact for what I could see, although there was report of possible skin redness. LABORATORY DATA: 23 BUN, 0.6 creatinine. 4.0 potassium. LFTs are recently elevated including AST, ALT, alkaline phosphatase, albumin was 3.7 recently. Please see record. Recent lipase 70. White count was 20, came down to 10. 32 hematocrit, platelets 253. Recent urinalysis with 11-20 white blood cells per field. IMPRESSION AND PLAN: 1. Acute respiratory failure, refractory. 2. Possible airway plugging. 3. Aspiration pneumonia. 4. Chronic respiratory failure. 5. Dysphagia, status post feeding tube. 6. Anoxic ischemic brain injury. 7. Recent medication overdose reported. 8. Recent acute kidney failure, recovered and no longer on dialysis. 9. Recent LFT elevation. 10. Febrile syndrome, under evaluation and may be multifactorial. Continue current treatment. The patient's respiratory issue . We will continue him on ventilator. Give some initial IV fluids. Continue antibiotics per ID. Follow up closely. The patient current condition. Acute ABG done already 7.42/34/65/93%, on FiO2 100% and 10 of PEEP. Aspiration precautions placed. Hold tube feeds until stated. Go ahead and check abdominal x-ray screening just in case there is an underlying GI problem as I am unsure what led to this with pneumonia. Thank you very much for this consult, Dr. Lee and Dr. Haney. Please call for questions. Greater than 30 minutes in direct care and coordination on this date and emergent interventions. MD AIRAM Giron/DEEDEEL /[id number]
[2019-11-28] MEDS: VANCOMYCIN HCL 1.5 GM in SODIUM CHLORIDE 0.9% 250ML 300 ML IV SCH ×2 (11:53→23:31)
[2019-11-28] MEDS: DEXTROSE 5%/0.9% SOD CHL 1,000 ML IV SCH ×2 (12:10→21:35)
--- NOTE | 2019-11-28 12:34 | Progress Note ---
DATE: 11/28/2019 Internal Medicine Progress Note SUBJECTIVE: The patient had an episode of respiratory distress last night and also had fever. The patient was transferred to Intensive Care Unit. He already had a preexisting tracheostomy he was placed, connected to the ventilator. PHYSICAL EXAMINATION: VITAL SIGNS: Temperature 101.3, heart rate is 118 per minute, respiratory rate is 28 per minute, blood pressure is 116/82, oxygen 100%. He is connected to the ventilator of course. HEART: Showed regular rhythm. Normal S1, S2 sound. LUNGS: Clear bilaterally. ABDOMEN: Soft. EXTREMITIES: Show no evidence of edema. He had atrophy in upper and lower extremities. LABORATORY DATA: On the blood work, we have a white blood count 12.81, hemoglobin 12.1, hematocrit 35.9, platelet count 365,000. On the BMP; sodium 139, potassium 3.7, chloride 107, CO2 is 21, BUN 29, creatinine 0.57, glucose 131, magnesium is 2.0, calcium 9.5. AST 52, ALT 94, total protein 7.6, albumin 3.3. Lipase is normal at 70. TSH is normal at 2.253. Also, we have a chest x-ray, which show evidence of new airspace opacities in the left lung, which may represent pneumonia in the appropriate clinical setting stable elevation of the left hemidiaphragm also. FINAL IMPRESSION: 1. Acute respiratory failure. 2. Dysphagia. 3. New developing possible aspiration pneumonia. 4. Anoxic encephalopathy. 5. Dysphagia on PEG tube feedings by elevated liver function tests. 6. New leukocytosis. 7. Acute renal failure, which is new. PLAN OF TREATMENT: We are going to continue cefepime 1 g IV twice a day. He is taking dextrose 50 mL per hour, which we are going to change to D5 normal saline at 100 mL an hour, continue vancomycin 1 g IV twice a day. Dr. Mcneill is on the case for Infectious Diseases, Dr. Blum from Pulmonary point of view also. He is also taking Tylenol 650 mg by PEG tube q.4 hours as needed for pain or fever, albuterol q.4 hours as needed for shortness of breath, Lovenox 30 mg subcutaneously daily for DVT prophylaxis, Pepcid 20 mg by the PEG tube daily for gastritis prophylaxis, metoprolol 50 mg twice a day, and metoprolol 10 mg IV q.6 hours as needed for hypertension. Case has been discussed with the nurse last night and today. Labs have been reviewed. Warehouse Guard report have been reviewed. X-ray has been reviewed. Time spent around 55 minutes. MD ASHLEIGH Stevens/STEPHANIE /[id number]
--- NOTE | 2019-11-28 13:55 | Progress Note ---
DATE: 11/28/2019 ADDENDUM: According to is on antibiotic regimen 250 mg IV q.8 hours because of concern about aspiration pneumonia. The patient cannot take Zosyn or Unasyn due to the allergy to penicillins. CBC and BMP have been going to be rechecked tomorrow. His IV fluids have been changed to D5 normal saline at 100 mL an hour because of possibility of sepsis persisted or any fever. He is started on Tylenol for fever. Blood culture has been sent. Most likely the source of the fever is pneumonia due to the finding on new x-ray. MD ASHLEIGH Stevens/STEPHANIE /[id number]
[2019-11-28] MEDS: METRONIDAZOLE 250MG/NS 50ML 50 ML IV SCH ×2 (14:21→21:35)
--- NOTE | 2019-11-28 15:21 | Progress Note ---
DATE: 11/28/2019 SUBJECTIVE: Mr. Toth in the intensive care unit. His father at the bedside. Discussed with him. The patient was noncommunicative. Have tracheostomy, contraction. The patient, who have respiratory failure, dysphagia, anoxic encephalopathy, and PEG tube placement. Currently in the intensive care unit. Discussed with the father. Prognosis is very poor to guarded overall. PHYSICAL EXAMINATION: GENERAL: The patient is noncommunicative, but comfortable. VITAL SIGNS: Stable, currently afebrile. HEENT: He is not icteric. NECK: Supple. CHEST: Few rhonchi. HEART: S1 and S2. No S3, S4, or murmur. ABDOMEN: Soft. Bowel sounds present. No tenderness. EXTREMITIES: No edema. IMPRESSION: 1. Respiratory failure, acute. 2. Recurrent aspiration pneumonia. 3. Chronic respiratory failure. 4. Dysphagia, status post feeding tube. 5. Anoxic brain injury. 6. Recent medication overdose. 7. Ajrud-yk-mdzxtio kidney disease. 8. Fever. Discussed with the father. It could be either recurrent aspiration pneumonia, however, cultures are negative. He failed antibiotic. 9. Also, anoxic brain injury with CBC and his fever. His white count currently improved. All his cultures are negative. Chest x-ray showing new airspace opacities. 10. Concern mucus plug. He is currently on vancomycin and cefepime and metronidazole. Continue with the same. 11. Other medical issues discussed above. Discussed with the family, with his father. Prognosis remains poor. MD OSMAR Parsons/MODL /[id number]
--- NOTE | 2019-11-28 16:08 | NUR ---
JUST ASKED ME WHAT THE PURPOSE OF THE TRACH IS AND "HAS ANYONE TRIED TO GIVE HIM SOMETHING BY MOUTH." FATHER STATED THAT HE GIVES DROPS OF COKE WITH PAPER TOWEL INTO PATIENT'S MOUTH AND STATES PATIENT SWALLOWS IT. I EXPLAINED RISK OF ASPIRATION SINCE PATIENT IS ON VENTILATOR AND HAS ANOXIC BRAIN INJURY. I EXPLAINED THAT IVF VIA PIV AND TUBE FEEDS VIA PEG TUBE, ARE PROVISIONS FOR HYDRATION AND NUTRITION AT THIS TIME.
--- NOTE | 2019-11-28 16:25 | NUR ---
AND FATHER AT BEDSIDE BATHING PATIENT
[2019-11-29] VITALS (25 sets, daily range): BP systolic 135–173; BP diastolic 89–122
[2019-11-29] MEDS: METOPROLOL TARTRATE INJ 1 MG/ML VIAL IV PRN (03:10)
[2019-11-29] MEDS: CEFEPIME 1GM/NS 0.9% 50 ML 50 ML IV SCH ×2 (05:08→17:25)
[2019-11-29 05:28] LABS: BASOPHILS % 0.2 % (0.0-1.0); EOSINOPHILS # (AUTO) 0.2 (0.0-0.4); EOSINOPHILS % 2.4 % (0.0-6.0); HEMATOCRIT 27.3 % (38.2-49.6); HEMOGLOBIN 9.2 g/dL (14.0-18.0); LYMPHOCYTES # (AUTO) 1.5 (1.0-3.2); LYMPHOCYTES % 15.6 % (18.0-39.1); MEAN CORPUSCULAR HEMOGLOBIN 29.7 pg (28-32); MEAN CORPUSCULAR HGB CONC 33.7 g/dL (31-35); MEAN CORPUSCULAR VOLUME 88.1 fL (81-99); MONOCYTES # (AUTO) 0.7 (0.2-0.8); MONOCYTES % 6.9 % (4.4-11.3); NEUTROPHILS # (AUTO) 7.4 (2.1-6.9); NEUTROPHILS % 74.5 % (38.7-80.0); PLATELET COUNT 234 x10e3/uL (140-360); RED CELL DISTRIBUTION WIDTH 14.6 % (11.7-14.4)
[2019-11-29 05:56] LABS: ANION GAP 11.2 mmol/L (8-16); BLOOD UREA NITROGEN 20 mg/dL (7-26); BUN/CREATININE RATIO 43 (6-25); CALCIUM 8.3 mg/dL (8.4-10.2); CARBON DIOXIDE 21 mmol/L (22-29); CHLORIDE 109 mmol/L (98-107); CREATININE, SERUM 0.47 mg/dL (0.72-1.25); EST GLOMERULAR FILTRATION RATE > 60 ML/MIN (60-); GLUCOSE 120 mg/dL (74-118); POTASSIUM 3.2 mmol/L (3.5-5.1); SODIUM 138 mmol/L (136-145)
[2019-11-29] MEDS: METRONIDAZOLE 250MG/NS 50ML 50 ML IV SCH ×3 (06:02→22:28)
--- NOTE | 2019-11-29 07:13 | Diagnostic Imaging Report ---
EXAMINATION: CHEST SINGLE (PORTABLE) COMPARISON: Chest x-ray 0628 hours INDICATION: Shortness of breath, fever ^TRACH VENT ^[id number] ^0543 DISCUSSION: Frontal view of the chest obtained at 0628 hours. HEART AND MEDIASTINUM: The heart is normal in size LINES: Tracheostomy is midline LUNGS: Left upper lobe infiltrates are no longer visualized. Left basilar airspace opacity may represent atelectasis or pneumonia. Right lung is clear with a skinfold over the upper chest. PLEURA: No large effusions or pneumothorax. Stable elevation of the left diaphragm BONES AND SOFT TISSUES: No focal osseous lesion. The soft tissues are normal. IMPRESSION: Improved infiltrates in the left upper lobe. Stable left basilar infiltrate or atelectasis. No new findings in the right chest. Signed by: Dr. Karla Gilbert MD on 11/29/2019 7:10 AM
[2019-11-29] MEDS: DEXTROSE 5%/0.9% SOD CHL 1,000 ML IV SCH ×2 (07:45→17:25)
[2019-11-29] MEDS: ENOXAPARIN 30 MG/0.3 ML SYR SC SCH (08:49)
[2019-11-29] MEDS: FAMOTIDINE 20 MG TAB PEG SCH (08:49)
[2019-11-29] MEDS: METOPROLOL TARTRATE 50 MG TAB PEG SCH ×2 (08:49→17:25)
--- NOTE | 2019-11-29 10:50 | NUR ---
SPOKE WITH FACILITY REP, STILL PENDING AUTH FOR SNF.
[2019-11-29] MEDS: VANCOMYCIN HCL 1.5 GM in SODIUM CHLORIDE 0.9% 250ML 300 ML IV SCH ×2 (11:31→23:25)
--- NOTE | 2019-11-29 19:47 | Consultation ---
DATE OF CONSULTATION: 11/29/2019 Critical Care Consultation REASON FOR CONSULT: Shortness of breath. HISTORY OF PRESENT ILLNESS: Mr. Toth is a 29-year-old male, known to me from [facility]. The patient is in persistent vegetative state. He was unable to oxygenate and his saturation was low, so he was transferred to ICU. 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 He has history of overdose. He is on trach collar at [facility]. I am unable to get any history from him, as he is noncommunicative. PAST MEDICAL HISTORY: Per the chart, history of ATN, overdose in the past, recent tracheostomy, and PEG tube. FAMILY AND SOCIAL HISTORY: He does not smoke. Does not drink. History of drug use in the past. REVIEW OF SYSTEMS: Unable to obtain because of the patient's mental status. PHYSICAL EXAMINATION: VITAL SIGNS: Temperature 99.7, pulse of 77, blood pressure 135/94, respiratory rate of 18, and O2 saturation is 100%. He is on FiO2 of 50%. HEENT: Head is atraumatic and normocephalic. His eyes are not open. He has tracheostomy. He is contracted. CHEST: Crackles bilaterally. HEART: S1 and S2 audible. ABDOMEN: Soft. EXTREMITIES: No pedal edema. Contracted muscle wasting. LABORATORY DATA: Reviewed. Chest x-ray when he was transferred to ICU showed new airspace opacity in the left lung, which is possibly pneumonia. ASSESSMENT/PLAN: Mr. Toth is a 29-year-old male with persistent vegetative state, anoxic brain damage. Current problem: 1. Persistent vegetative state. 2. Anoxic brain damage. 3. Possible aspiration pneumonia. 4. Weyhi-yb-zbaizgu hypoxic respiratory failure. PLAN: Wean the patient from the ventilator. Agree with IV antibiotics. Lovenox subcutaneous for DVT prophylaxis. Pepcid for GI prophylaxis. We will follow the sputum culture. ID is also following the patient. Follow their recommendations. Thank you for this consult. MD PAWAN Garcia/STEPHANIE /[id number]
[2019-11-29] MEDS: FLUCONAZOLE 100 MG/NS 50 ML 50 ML IV SCH (21:25)
[2019-11-30] VITALS (22 sets, daily range): BP systolic 127–159; BP diastolic 90–110
[2019-11-30] MEDS: DEXTROSE 5%/0.9% SOD CHL 1,000 ML IV SCH ×3 (03:45→23:00)
[2019-11-30] MEDS: METRONIDAZOLE 250MG/NS 50ML 50 ML IV SCH ×3 (06:04→22:00)
[2019-11-30] MEDS: CEFEPIME 1GM/NS 0.9% 50 ML 50 ML IV SCH ×2 (06:05→17:25)
[2019-11-30] MEDS: FAMOTIDINE 20 MG TAB PEG SCH (08:32)
[2019-11-30] MEDS: METOPROLOL TARTRATE 50 MG TAB PEG SCH ×2 (08:32→16:45)
[2019-11-30] MEDS: VANCOMYCIN HCL 1.5 GM in SODIUM CHLORIDE 0.9% 250ML 300 ML IV SCH ×2 (13:29→23:00)
--- NOTE | 2019-11-30 14:04 | NUR ---
SPOKE WITH FATHER SHRUTHI FLOWER [phone], HE STATES HE WILL DO WHAT IS NECESSARY FOR CARE FOR SON, STATES KARIN IS THE SPOUSE, STATES HE WILL COME TONIGHT TO SEE IF HE CAN UNLOCK PHONE TO SEE IF THE INFORMATION FOR FACILITY IS IN HIS PHONE. HE STATES HE IS AVAILABLE FOR THE NURSE ANY TIME THEY NEED HIM. HE STATES HIS BASELINE 7 WEEKS AGO HE WAS WALKING AND TALKING AND PREFORMING DAILY ACTIVITIES, STATES HE WENT TO HOSPITAL FOR PNEUMONIA AND WENT HOME AND THAT IS WHEN HE WAS FOUND PASSED OUT FROM THE PRESCRIPTION MEDICATION GIVEN TO HIM AT THE HOSPITAL. HE STATES HIS SON WAS PLACED AT [facility] AND THEY WERE CLOSING AND SENT HIM TO THE [facility]. DAD STATES HE WANTS HIM CLOSER TO HIM AND KARIN. HE IS IN AGREEMENT TO PRECEDE WITH THE [facility] LOCATION. HE ALSO UNDERSTANDS THAT HIS SON SOCIAL SECURITY CHECK IS TO GO TO THE FACILITY TO CARE FOR SON AND IS IN AGREEMENT FOR THAT TO HAPPEN. CALLED REP AND GAVE ALL INFORMATION AND ALERTED NURSE TO FATHER COMING.
[2019-11-30] MEDS ORDERED: AMLODIPINE BESYLATE 5 MG TAB ONE (19:20)
[2019-11-30] MEDS: FLUCONAZOLE 100 MG/NS 50 ML 50 ML IV SCH (20:40)
[2019-12-01] VITALS (25 sets, daily range): BP systolic 124–154; BP diastolic 92–114
[2019-12-01] MEDS: METOPROLOL TARTRATE INJ 1 MG/ML VIAL IV PRN
[2019-12-01] MEDS: CEFEPIME 1GM/NS 0.9% 50 ML 50 ML IV SCH ×2 (05:17→19:38)
[2019-12-01] MEDS: METRONIDAZOLE 250MG/NS 50ML 50 ML IV SCH ×3 (06:12→21:48)
--- NOTE | 2019-12-01 07:08 | NUR ---
s: no acute neurological changes in Vs: 124 100.7 128/98 tachycardic cta trached eomi pupils 5mm but react to direct light face symmetric does not track or look towards flashing light eyes wander moves arms spontaneously but not purposefully increased muscle tone in neck arms and legs toes upgpoing does not follow commands a/p anoxic brain injury, cerebellar injury, occipital and temporal lobe atrophy discussed case w/ family at length, patient in persistant vegetative state but may reach a degree of cognizance w/ time and therapy discussed transcranial direct current stim amantadine, dopaminergics, depakote, stimulants, ambien as therapeutic options but won't initiate at this time. discussed [facility] as rehab recovery option - EEG negative for seizure dc keppra patient will need 24 hour care, likely best case scenario, severe visual deficit, motor dysfunction and memory difficulty no evidence seizure disorder minimally conscious state vs vegetative state -once patient is medically stable can initiate neurotropics
[2019-12-01] MEDS: FAMOTIDINE 20 MG TAB PEG SCH (09:02)
[2019-12-01] MEDS: METOPROLOL TARTRATE 50 MG TAB PEG SCH ×2 (09:02→16:56)
--- NOTE | 2019-12-01 09:19 | NUR ---
Nutrition Intervention Note RD Recommendation(s) for Physician: -TF recommendation via peg tube: Continue Osmolite at 45 ml/hr advance as tolerate to goal rate of 65 ml/hr with 60 ml of water flushed every 4 hours. (1872 kcal, 86 gram protein, 1279 ml of fluid) -IVF management and water flushes per MD, recommend to d/c IVF when TF is advanced to goal rate if medically feasible. -Current D5NS is providing the pt with an additional 120 grams of dex and 408 kcal Plan of Care: RD following, monitoring for tolerance and adequacy. Nutrition reason for involvement: follow up RD Assessment 12/01: Follow up: Pt has been transferred to the ICU. Osmolite 1.2 was observed running at 45 ml/hr, per nurse the pt is tolerating the TFs. Advised and recommended to continue TF to goal rate of 65 ml/hr to ensure the pt is meeting his energy and protein needs. Pt is meeting calorie needs with D5NS running at 100 ml/hr, but pt is not meeting their protein needs. Remains on trach, no pressors. Will continue to monitor. 11/26: Follow up. Pt has been tolerating tube feeding per RN note. Osmolite 1.2 is currently out of stock; therefore, Osmolite 1.0 is being substituted in the meantime. Recommend Osmolite 1.0 @ goal rate of 80 mL/hr until Osmolite 1.2 is in stock. Informed RN. Will continue to monitor. 11/22: 29 YOM seen within the IMCU. Pt was recently admitted, per nurse pt has trach and peg tube. Nurse reported the pt was on Novasource at 40 ml/hr with 300 ml of water flushed every 4 hours for 22 hours at his MD (1760 kcal, 80 gram protein). Nurse reported the pt does not have hx of dialysis and it is not reported in PMH. Renal labs WNL-will recommend standard formula for now, please re consult RD if renal labs become abnormal. Pt was seen resting, no family at bedside. No past weights in EMR. Will continue to monitor. Principal Problems/Diagnoses: PMH: [place], Seizure Disorder, Chronic Back Pain, Anoxic brain injury/ oct 2019 GI: abdomen soft, non-tender LBM: 12/01 Skin: pressure ulcer on sacrum per FS Labs: 12/01: K 3.2, CL 109, CO2 21, Creat .47, Gluc 120, Ca 8.3 11/26: Na 143, BUN 23, Creat 0.57, Glu 130 11/21: Na 135, Cl 95, BUN 38, Creat .68, Gluc 121, Ca 10.6 Meds: metroprolol, vancomycin, pepcid IVF: D5NS at 100 ml/hr (120 gram dex, 408 kcal) Ht: 68 in Wt: 124 lbs BMI: 18.9 kg/m^2 IBW: 154 lbs Malnutrition Evaluation 11/22 The patient does not meet criteria for a specified degree of malnutrition at this time. Will re-evaluate at follow-up as appropriate. Energy intake: -chronic tube feeder Weight loss: -unable to evaluate Fat loss: Mild Muscle loss: Mild Nutrition Prescription (Diet Order): NPO Estimated Nutritional Needs: Calories:3847-5218 kcal/day (25- 35 kcal/kg/day) Weight used : CBW Protein : 56-84 protein/day (1-1.5 gram/kg/day ) Weight used: CBW Diet Adequacy: current tube feed order does not meet pt's calorie and protein needs Diet Education Needs Assessment: Diet education not indicated, patient on temporary/transition diet. Nutrition Care Level: moderate Nutrition Diagnosis: Inadequate energy intake related to medical condition as evidenced by the pts needs for peg tube to meet nutritional needs. Goal: Patient will meet 75-100% of estimated needs by follow up Progress: progressing Interventions: TF - Composition, Rate, Route Monitoring/Evaluation: -Total energy intake, Total protein intake, Formula/Solution Signed: Jenni Eduardo RD, MAKAYLA
[2019-12-01] MEDS: DEXTROSE 5%/0.9% SOD CHL 1,000 ML IV SCH ×2 (11:43→19:45)
[2019-12-01] MEDS: VANCOMYCIN HCL 1.5 GM in SODIUM CHLORIDE 0.9% 250ML 300 ML IV SCH ×2 (11:43→23:30)
[2019-12-01] MEDS: FLUCONAZOLE 100 MG/NS 50 ML 50 ML IV SCH (20:14)
[2019-12-02] VITALS (26 sets, daily range): BP systolic 132–153; BP diastolic 94–116
[2019-12-02] MEDS: METOPROLOL TARTRATE INJ 1 MG/ML VIAL IV PRN (04:00)
[2019-12-02] MEDS: DEXTROSE 5%/0.9% SOD CHL 1,000 ML IV SCH ×2 (04:02→17:35)
[2019-12-02 05:37] LABS: BASOPHILS % 0.3 % (0.0-1.0); EOSINOPHILS # (AUTO) 0.3 (0.0-0.4); HEMATOCRIT 31.8 % (38.2-49.6); HEMOGLOBIN 10.7 g/dL (14.0-18.0); LYMPHOCYTES # (AUTO) 1.3 (1.0-3.2); LYMPHOCYTES % 15.4 % (18.0-39.1); MEAN CORPUSCULAR HEMOGLOBIN 29.6 pg (28-32); MEAN CORPUSCULAR HGB CONC 33.6 g/dL (31-35); MEAN CORPUSCULAR VOLUME 88.1 fL (81-99); MONOCYTES # (AUTO) 0.8 (0.2-0.8); MONOCYTES % 9.1 % (4.4-11.3); NEUTROPHILS # (AUTO) 6.2 (2.1-6.9); NEUTROPHILS % 71.6 % (38.7-80.0); PLATELET COUNT 315 x10e3/uL (140-360); RED BLOOD COUNT 3.61 x10e6/uL (4.3-5.7); RED CELL DISTRIBUTION WIDTH 14.7 % (11.7-14.4)
[2019-12-02 05:52] LABS: BLOOD UREA NITROGEN 6 mg/dL (7-26); BUN/CREATININE RATIO 13 (6-25); CARBON DIOXIDE 23 mmol/L (22-29); CHLORIDE 107 mmol/L (98-107); CREATININE, SERUM 0.47 mg/dL (0.72-1.25); EST GLOMERULAR FILTRATION RATE > 60 ML/MIN (60-); GLUCOSE 118 mg/dL (74-118); SODIUM 139 mmol/L (136-145)
[2019-12-02] MEDS: CEFEPIME 1GM/NS 0.9% 50 ML 50 ML IV SCH ×2 (06:04→17:36)
[2019-12-02] MEDS: METRONIDAZOLE 250MG/NS 50ML 50 ML IV SCH ×3 (06:04→22:01)
[2019-12-02] MEDS ORDERED: POTASSIUM CHLORIDE 20MEQ/15ML UDC ONE (12:15)
[2019-12-02] MEDS: METOPROLOL TARTRATE 50 MG TAB PEG SCH ×2 (12:17→17:35)
[2019-12-02] MEDS: VANCOMYCIN HCL 1.5 GM in SODIUM CHLORIDE 0.9% 250ML 300 ML IV SCH ×2 (12:17→23:48)
[2019-12-02] MEDS: FAMOTIDINE 20 MG TAB PEG SCH (12:17)
[2019-12-02] MEDS: ACETAMINOPHEN 325 MG/10 ML UDC PEG PRN ×2 (12:18→17:36)
[2019-12-02] MEDS ORDERED: POTASSIUM CHLORIDE 20MEQ/15ML UDC NG ONE (12:50)
--- NOTE | 2019-12-02 17:30 | Progress Note ---
DATE: 12/02/2019 SUBJECTIVE: Mr. Toth is doing better. Remains in the Intensive Care Unit, but overall improving. He is noncommunicative. His medical histories including vegetative state, anoxic brain injury, aspiration pneumonia, and recurrent aspiration. Recent medication overdose, ygiyk-ik-xjifhis kidney disease, and aspiration pneumonia, healthcare-associated pneumonia. LABORATORY DATA: Reviewed, white count 8.59 and hemoglobin 10.7. Sodium 139 and potassium of 3.03. MEDICATIONS LIST: He is currently on: 1. Tylenol. 2. Vancomycin. 3. Pepcid. 4. Metronidazole. 5. Cefepime. 6. . IMAGING DATA: Chest x-ray, which was done on shows improved infiltrate. PHYSICAL EXAMINATION: GENERAL: Noncommunicative. VITAL SIGNS: Stable. Temperature 97.9. There is no fever for couple of days. HEENT: Not icteric. NECK: Supple. CHEST: Few crackles at the bases. COR: S1, S2. No S3, S4, or murmur. ABDOMEN: Soft. IMPRESSION AND PLAN: 1. Healthcare-associated pneumonia aspiration pneumonia, clinically getting better, finished 8 days of antibiotic. 2. Anoxic brain injury, trach. Discussed with the father, prognosis is extremely guarded. Plan for him to go to long-term. Continue with supportive care. MD OSMAR Parsons/MODL /[id number]
--- NOTE | 2019-12-02 18:52 | NUR ---
s: no acute neurological changes in Vs: 98 97 128/98 tachycardic cta trached eomi pupils 5mm but react to direct light face symmetric does not track or look towards flashing light eyes wander moves arms spontaneously but not purposefully increased muscle tone in neck arms and legs toes upgpoing does not follow commands a/p anoxic brain injury, cerebellar injury, occipital and temporal lobe atrophy discussed case w/ family at length, patient in persistant vegetative state but may reach a degree of cognizance w/ time and therapy discussed transcranial direct current stim amantadine, dopaminergics, depakote, stimulants, ambien as therapeutic options but won't initiate at this time. discussed TIRR as rehab recovery option - EEG negative for seizure dc keppra patient will need 24 hour care, likely best case scenario, severe visual deficit, motor dysfunction and memory difficulty no evidence seizure disorder minimally conscious state vs vegetative state -once patient is medically stable can initiate neurotropics
[2019-12-02] MEDS: FLUCONAZOLE 100 MG/NS 50 ML 50 ML IV SCH (20:08)
[2019-12-03] VITALS (24 sets, daily range): BP systolic 115–157; BP diastolic 82–114
[2019-12-03] MEDS: METOPROLOL TARTRATE INJ 1 MG/ML VIAL IV PRN ×3 (02:30→20:57)
[2019-12-03] MEDS: CEFEPIME 1GM/NS 0.9% 50 ML 50 ML IV SCH (05:11)
[2019-12-03] MEDS: METRONIDAZOLE 250MG/NS 50ML 50 ML IV SCH ×3 (05:11→22:29)
[2019-12-03] MEDS: DEXTROSE 5%/0.9% SOD CHL 1,000 ML IV SCH ×3 (05:11→22:30)
[2019-12-03 05:14] LABS: BASOPHILS % 0.3 % (0.0-1.0); EOSINOPHILS # (AUTO) 0.2 (0.0-0.4); EOSINOPHILS % 1.8 % (0.0-6.0); HEMATOCRIT 32.9 % (38.2-49.6); HEMOGLOBIN 11.3 g/dL (14.0-18.0); LYMPHOCYTES # (AUTO) 1.1 (1.0-3.2); LYMPHOCYTES % 9.2 % (18.0-39.1); MEAN CORPUSCULAR HEMOGLOBIN 30.5 pg (28-32); MEAN CORPUSCULAR HGB CONC 34.3 g/dL (31-35); MEAN CORPUSCULAR VOLUME 88.7 fL (81-99); MONOCYTES # (AUTO) 0.8 (0.2-0.8); MONOCYTES % 6.7 % (4.4-11.3); NEUTROPHILS # (AUTO) 9.4 (2.1-6.9); NEUTROPHILS % 81.5 % (38.7-80.0); PLATELET COUNT 396 x10e3/uL (140-360); RED BLOOD COUNT 3.71 x10e6/uL (4.3-5.7); RED CELL DISTRIBUTION WIDTH 15.1 % (11.7-14.4)
[2019-12-03 05:30] LABS: ANION GAP 10.6 mmol/L (8-16); BLOOD UREA NITROGEN 8 mg/dL (7-26); BUN/CREATININE RATIO 17 (6-25); CALCIUM 9.3 mg/dL (8.4-10.2); CARBON DIOXIDE 24 mmol/L (22-29); CHLORIDE 105 mmol/L (98-107); CREATININE, SERUM 0.48 mg/dL (0.72-1.25); EST GLOMERULAR FILTRATION RATE > 60 ML/MIN (60-); GLUCOSE 128 mg/dL (74-118); POTASSIUM 3.6 mmol/L (3.5-5.1); SODIUM 136 mmol/L (136-145)
[2019-12-03] MEDS: ACETAMINOPHEN 325 MG/10 ML UDC PEG PRN ×2 (05:40→14:04)
[2019-12-03] MEDS: METOPROLOL TARTRATE 50 MG TAB PEG SCH ×2 (08:31→16:26)
[2019-12-03] MEDS: FAMOTIDINE 20 MG TAB PEG SCH (08:31)
--- NOTE | 2019-12-03 09:34 | NUR ---
s: no acute neurological changes in PATIENT NO SEIZURE Vs: 99.9 120 145 / 99 tachycardic cta trached eomi pupils 5mm but react to direct light face symmetric does not track or look towards flashing light eyes wander moves arms spontaneously but not purposefully increased muscle tone in neck arms and legs toes upgpoing does not follow commands a/p anoxic brain injury, cerebellar injury, occipital and temporal lobe atrophy discussed case w/ family at length, patient in persistant vegetative state but may reach a degree of cognizance w/ time and therapy discussed transcranial direct current stim amantadine, dopaminergics, depakote, stimulants, ambien as therapeutic options but won't initiate at this time. discussed TIRR as rehab recovery option - EEG negative for seizure dc keppra patient will need 24 hour care, likely best case scenario, severe visual deficit, motor dysfunction and memory difficulty no evidence seizure disorder minimally conscious state vs vegetative state -once patient is medically stable can initiate neurotropics
--- NOTE | 2019-12-03 10:21 | NUR ---
SPOKE WITH FACILITY, THE FAMILY HAS NOT COMPLETED THE MEDICAID PENDING PAPERWORK AND HAS IGNORED THE CALLS FROM THE FACILITY. DAD CALLED TODAY STATING HE WAS TOLD ASHLEIGH OVIEDO HE WOULD BE READY FOR DISCHARGE TODAY., LET HIM KNOW THAT WAS TRUE AND HE HAS TO GET THE FACILITY PAPERWORK COMPLETED TODAY OR WILL HAVE TO MOVE PT BACK TO [facility]. HE STATES HE WILL DO WHAT HE NEEDS AND WILL CALL BACK IF ANY QUESTIONS.
[2019-12-03] MEDS: VANCOMYCIN HCL 1.5 GM in SODIUM CHLORIDE 0.9% 250ML 300 ML IV SCH ×2 (12:33→23:28)
--- NOTE | 2019-12-03 14:40 | NUR ---
CALLED GIRLFRIEND AND ASKED ABOUT THE GREEN CARD DISABILITY IS ON AND WHOM HAS POSSESSION OF SAID CARD, SHE SAID SHE DID. I EXPLAINED THAT MONEY HAS TO GO FOR THE CARE OF THE PATIENT. SHE STATES SHE DOESN'T HAVE TIME TO SPEAK WITH ME. FOR ME TO CALL THE DAD. I TOLD HER I HAVE CALLED HIM 2 TIMES TODAY AND IS NOT ANSWERING MY CALLS. CALLED APS AND REPORTED TO [facility] WORK ID [id number] AT [phone] THE SITUATION OBTAINED REFERENCE NUMBER [id number]. LET APS KNOW THAT WE ARE UNABLE TO PLACE PT WITHOUT THE FAMILY COOPERATION. THEY STATE THEY WILL INVESTIGATE THE DISABILITY MONEY AND WHOM IT IS DESIGNATED TO CARE FOR AND WILL CONTACT THE FAMILY ABOUT THE PROCESS AND WILL CONFIRM WITH SOCIAL SECURITY WHOM IS MEANT TO GET SAID MONIES.
[2019-12-03] MEDS ORDERED: KETOROLAC TROMETHAMINE 30 MG/ML VIAL IV ONE (15:15)
[2019-12-03] MEDS ORDERED: SODIUM CHLORIDE 0.9% IV ONE (15:15)
[2019-12-03] MEDS ORDERED: SODIUM CHLORIDE 0.9% 1000ML 1,000 ML ONE (15:23)
--- NOTE | 2019-12-03 15:23 | NUR ---
Temp 100.4 core, with tylenol already given and heart rate 136 with IV metoprolol already given. BP 135/90, RR 24, O2 sat 95. Spoke with Dr Hari Haney. Orders for NS bolus and IV tordol x1 and monitor.
[2019-12-03] MEDS: FLUCONAZOLE 100 MG/NS 50 ML 50 ML IV SCH (20:37)
[2019-12-03] MEDS: ALBUTEROL SULF 0.083% NEB SOLN 3 ML NEB INH PRN (23:08)
[2019-12-04] VITALS (26 sets, daily range): BP systolic 130–158; BP diastolic 88–111
[2019-12-04] MEDS: ACETAMINOPHEN 325 MG/10 ML UDC PEG PRN ×3 (00:30→13:24)
[2019-12-04] MEDS: METOPROLOL TARTRATE INJ 1 MG/ML VIAL IV PRN ×3 (04:58→17:53)
[2019-12-04 05:20] LABS: BASOPHILS % 0.2 % (0.0-1.0); EOSINOPHILS # (AUTO) 0.2 (0.0-0.4); EOSINOPHILS % 1.5 % (0.0-6.0); HEMATOCRIT 32.7 % (38.2-49.6); HEMOGLOBIN 11.2 g/dL (14.0-18.0); LYMPHOCYTES # (AUTO) 1.5 (1.0-3.2); LYMPHOCYTES % 13.2 % (18.0-39.1); MEAN CORPUSCULAR HEMOGLOBIN 30.2 pg (28-32); MEAN CORPUSCULAR HGB CONC 34.3 g/dL (31-35); MEAN CORPUSCULAR VOLUME 88.1 fL (81-99); MONOCYTES # (AUTO) 0.9 (0.2-0.8); MONOCYTES % 7.5 % (4.4-11.3); NEUTROPHILS # (AUTO) 8.7 (2.1-6.9); PLATELET COUNT 412 x10e3/uL (140-360); RED BLOOD COUNT 3.71 x10e6/uL (4.3-5.7); RED CELL DISTRIBUTION WIDTH 15.4 % (11.7-14.4)
[2019-12-04] MEDS: METRONIDAZOLE 250MG/NS 50ML 50 ML IV SCH ×3 (05:24→22:02)
[2019-12-04 05:48] LABS: ANION GAP 12.2 mmol/L (8-16); BLOOD UREA NITROGEN 8 mg/dL (7-26); BUN/CREATININE RATIO 16 (6-25); CARBON DIOXIDE 22 mmol/L (22-29); CHLORIDE 107 mmol/L (98-107); EST GLOMERULAR FILTRATION RATE > 60 ML/MIN (60-); GLUCOSE 117 mg/dL (74-118); POTASSIUM 3.2 mmol/L (3.5-5.1); SODIUM 138 mmol/L (136-145)
[2019-12-04] MEDS: ALBUTEROL SULF 0.083% NEB SOLN 3 ML NEB INH PRN ×2 (06:55→20:27)
[2019-12-04] MEDS: FAMOTIDINE 20 MG TAB PEG SCH (08:20)
[2019-12-04] MEDS: METOPROLOL TARTRATE 50 MG TAB PEG SCH ×3 (08:20→22:03)
[2019-12-04] MEDS: DEXTROSE 5%/0.9% SOD CHL 1,000 ML IV SCH ×2 (08:20→16:41)
--- NOTE | 2019-12-04 10:35 | NUR ---
Vanc trough 10.9, Dr Mcneill notified.
--- NOTE | 2019-12-04 11:30 | NUR ---
PT ON ATC 40%,O2 SATS DROPPED 75%.BAGGING ,SUCTION PT,O2 SATS WENT UP 90%.DR GARCIA ORDER PLACED PT ON THE VENT PRVC 450/8/5/60%.
[2019-12-04] MEDS: VANCOMYCIN HCL 1.5 GM in SODIUM CHLORIDE 0.9% 250ML 300 ML IV SCH ×2 (12:14→23:21)
--- NOTE | 2019-12-04 12:24 | NUR ---
Rapid response called as patient O2 sats abruptly decreased from 90s to 80s and into the 60s with interventions of suctioning trach and bag ventilation unsuccessful. RNs x3 and Rt to bedside. Patient skin color paled, cyanosis noted around mouth. Dr Rinaldi to bedside. O2 sats gradually into 80s. Dr Montez made aware, orders rec'd.
--- NOTE | 2019-12-04 12:30 | NUR ---
Pt with respiratory distress with O2 sats trended down quickly to 80's with bagging. Rapid response was called, pt responded quickly back to 96% O2 sat with bagging, sterile saline, suctioning. Dr Montez was contacted with order to place on vent for now.
--- NOTE | 2019-12-04 13:06 | Diagnostic Imaging Report ---
EXAMINATION: CHEST SINGLE (PORTABLE) COMPARISON: Chest x-ray 11/29/2019 INDICATION: ^post Rapid Response ^[id number] ^1250 DISCUSSION: Frontal view of the chest obtained at 1247 hours. There are multiple skin fold across the right hemithorax. HEART AND MEDIASTINUM: The cardiomediastinal silhouette is unremarkable. LINES: Tracheostomy is midline in position LUNGS: Left lung is well-inflated and clear. Haziness over the right lung field is due to multiple skin folds. No confluent infiltrates. Left basilar airspace opacities have resolved. No interstitial edema. PLEURA: No pleural effusion or pneumothorax. BONES AND SOFT TISSUES: No focal osseous lesion. The soft tissues are normal. IMPRESSION: Resolved left basilar infiltrate or atelectasis. No gross abnormalities of the right chest as described above. Signed by: Dr. Karla Gilbert MD on 12/04/2019 1:03 PM
--- NOTE | 2019-12-04 14:20 | NUR ---
WAS CONTACTED BY MS MENEZES WITH APS, SHE GAVE SSN [id number] STATES SHE CANNOT MAKE THE FAMILY HAND OVER THE INFORMATION FOR PLACEMENT STATES THE GIRLFRIEND HAS 5 OPEN CASES WITH CPS SO THEY ARE USED TO APS/CPS RULES AND REGULATIONS. MS MENEZES WILL COME SEE THE PT AND STATES WE CAN JUST HAVE A FACILITY ACCEPT HIM WITH OUT FAMILY ASSISTANCE. I EXPLAINED WE CANNOT DO THAT, SHE STATES IF ABLE THEN SEND BACK TO [facility]. IF ANY CHANGES TO CALL HER AT [phone]
[2019-12-04 16:16] LABS: ABG PCO2 30 mmHg (41-51); ABG PH 7.48 (7.31-7.41)
[2019-12-04 16:17] LABS: ABG HCO3 22 mmol/L (23-28); ABG PO2 118 mmHg (80-105)
--- NOTE | 2019-12-04 18:45 | NUR ---
Report received. Assumed care. Assessment done. See interventions. Contractured to upper & lower extremeties. Vent to trach settings: TV 450, FIO2 40%, PRVC 12 & PEEP 5. Osmolite to PEG tube @ 45ml/hr with 60 ml flushes of H2O Q4H. IV D5NS @ 100ml/hr.
[2019-12-04] MEDS: ACETYLCYSTEINE 200 MG/ML 4ML VIAL INH SCH (19:00)
[2019-12-04] MEDS ORDERED: POTASSIUM CHLORIDE 20MEQ/15ML UDC NG ONE ×2 (19:00→21:00)
[2019-12-04] MEDS: FLUCONAZOLE 100 MG/NS 50 ML 50 ML IV SCH (19:40)
[2019-12-05] VITALS (26 sets, daily range): BP systolic 123–165; BP diastolic 79–120
--- NOTE | 2019-12-05 02:45 | NUR ---
Complete bed bath given. Urine leaked around delgado. Checked balloon on delgado with 10ml saline. Bed linens chanaged.
[2019-12-05 05:17] LABS: BASOPHILS % 0.2 % (0.0-1.0); EOSINOPHILS # (AUTO) 0.2 (0.0-0.4); EOSINOPHILS % 1.6 % (0.0-6.0); HEMATOCRIT 33.8 % (38.2-49.6); HEMOGLOBIN 11.4 g/dL (14.0-18.0); LYMPHOCYTES # (AUTO) 1.2 (1.0-3.2); LYMPHOCYTES % 12.2 % (18.0-39.1); MEAN CORPUSCULAR HEMOGLOBIN 29.8 pg (28-32); MEAN CORPUSCULAR HGB CONC 33.7 g/dL (31-35); MEAN CORPUSCULAR VOLUME 88.5 fL (81-99); MONOCYTES # (AUTO) 0.8 (0.2-0.8); MONOCYTES % 8.4 % (4.4-11.3); NEUTROPHILS # (AUTO) 7.6 (2.1-6.9); NEUTROPHILS % 77.1 % (38.7-80.0); PLATELET COUNT 411 x10e3/uL (140-360); RED BLOOD COUNT 3.82 x10e6/uL (4.3-5.7); RED CELL DISTRIBUTION WIDTH 15.3 % (11.7-14.4)
[2019-12-05] MEDS: METOPROLOL TARTRATE 50 MG TAB PEG SCH ×3 (05:29→17:27)
[2019-12-05] MEDS: METRONIDAZOLE 250MG/NS 50ML 50 ML IV SCH ×3 (05:41→22:00)
[2019-12-05 05:43] LABS: ANION GAP 12.6 mmol/L (8-16); BLOOD UREA NITROGEN 8 mg/dL (7-26); BUN/CREATININE RATIO 16 (6-25); CALCIUM 9.2 mg/dL (8.4-10.2); CARBON DIOXIDE 21 mmol/L (22-29); CHLORIDE 107 mmol/L (98-107); EST GLOMERULAR FILTRATION RATE > 60 ML/MIN (60-); GLUCOSE 112 mg/dL (74-118); POTASSIUM 3.6 mmol/L (3.5-5.1); SODIUM 137 mmol/L (136-145)
[2019-12-05] MEDS: METOPROLOL TARTRATE INJ 1 MG/ML VIAL IV PRN (07:12)
[2019-12-05] MEDS: ACETAMINOPHEN 325 MG/10 ML UDC PEG PRN ×2 (07:12→16:23)
--- NOTE | 2019-12-05 07:28 | Diagnostic Imaging Report ---
Examination: Single AP view of the chest. COMPARISON: November 25, 2019 INDICATION: Shortness of breath DISCUSSION: Lines/tubes: Tracheostomy. Lungs: The lungs are well inflated and clear. No pneumonia or pulmonary edema. Pleura: No pleural effusion or pneumothorax. Heart and mediastinum: The heart and the mediastinum are unremarkable. Bones and soft tissues: No acute bony abnormalities. IMPRESSION: 1. No acute cardiopulmonary abnormalities. Signed by: Dr. Oj Morales M.D. on 12/05/2019 7:25 AM
[2019-12-05] MEDS: ALBUTEROL SULF 0.083% NEB SOLN 3 ML NEB INH PRN ×2 (07:40→19:08)
[2019-12-05] MEDS: ACETYLCYSTEINE 200 MG/ML 4ML VIAL INH SCH ×2 (07:40→19:08)
[2019-12-05] MEDS: DEXTROSE 5%/0.9% SOD CHL 1,000 ML IV SCH ×3 (08:01→21:00)
[2019-12-05] MEDS: FAMOTIDINE 20 MG TAB PEG SCH (09:38)
--- NOTE | 2019-12-05 10:01 | NUR ---
s: no acute neurological changes in PATIENT NO SEIZURE Vs: 100.5 142/106 93 tachycardic cta trached eomi pupils 5mm but react to direct light face symmetric does not track or look towards flashing light eyes wander moves arms spontaneously but not purposefully increased muscle tone in neck arms and legs toes upgpoing does not follow commands a/p anoxic brain injury, cerebellar injury, occipital and temporal lobe atrophy discussed case w/ family at length, patient in persistant vegetative state but may reach a degree of cognizance w/ time and therapy discussed transcranial direct current stim amantadine, dopaminergics, depakote, stimulants, ambien as therapeutic options but won't initiate at this time. discussed TIRR as rehab recovery option - EEG negative for seizure dc keppra patient will need 24 hour care, likely best case scenario, severe visual deficit, motor dysfunction and memory difficulty no evidence seizure disorder minimally conscious state vs vegetative state -once patient is medically stable can initiate neurotropics
[2019-12-05] MEDS: POTASSIUM CHLORIDE 20MEQ/15ML UDC NG SCH (12:00)
[2019-12-05] MEDS ORDERED: VANCOMYCIN 1GM/NS 250 ML 250 ML IV SCH (13:30)
--- NOTE | 2019-12-05 13:55 | NUR ---
SEE NOTE [id number]
[2019-12-05] MEDS: VANCOMYCIN 300 ML IV SCH (15:05)
--- NOTE | 2019-12-05 18:45 | NUR ---
Report received. Assumed care. Assessment done. See interventions. Contractured arms & legs. Opens eyes but does not follow. No responses observed. Trach collar to trach at 35% O2. PEG tube with Osmolite @ 45ml/hr with 60ml flushes H2O Q4H. IV: D5NS @ 100ml/hr to right hand.
--- NOTE | 2019-12-05 18:46 | NUR ---
Per doctor Hari Haney's instructions, called and spoke with the patient's son. He has clarified that he does not want the pt to have compressions, shock/defib, or medications in the event of a code situation. Shelly Rodriguez RN wittnessed the and orders placed in computer per Dr Hari Haney.
[2019-12-05] MEDS: FLUCONAZOLE 100 MG/NS 50 ML 50 ML IV SCH (20:21)
[2019-12-06] VITALS (26 sets, daily range): BP systolic 119–155; BP diastolic 79–113
[2019-12-06] MEDS: VANCOMYCIN 300 ML IV SCH ×2 (02:00→13:28)
[2019-12-06] MEDS: METOPROLOL TARTRATE 50 MG TAB PEG SCH ×4 (05:32→17:11)
[2019-12-06] MEDS: METRONIDAZOLE 250MG/NS 50ML 50 ML IV SCH ×3 (05:32→21:45)
[2019-12-06 06:01] LABS: ANION GAP 13.7 mmol/L (8-16); BLOOD UREA NITROGEN 8 mg/dL (7-26); BUN/CREATININE RATIO 17 (6-25); CALCIUM 9.3 mg/dL (8.4-10.2); CARBON DIOXIDE 23 mmol/L (22-29); CHLORIDE 105 mmol/L (98-107); CREATININE, SERUM 0.48 mg/dL (0.72-1.25); EST GLOMERULAR FILTRATION RATE > 60 ML/MIN (60-); GLUCOSE 117 mg/dL (74-118); POTASSIUM 3.7 mmol/L (3.5-5.1); SODIUM 138 mmol/L (136-145)
[2019-12-06] MEDS: ACETYLCYSTEINE 200 MG/ML 4ML VIAL INH SCH ×2 (07:15→19:00)
[2019-12-06] MEDS: ALBUTEROL SULF 0.083% NEB SOLN 3 ML NEB INH PRN (07:15)
[2019-12-06] MEDS: POTASSIUM CHLORIDE 20MEQ/15ML UDC NG SCH (08:12)
[2019-12-06] MEDS: FAMOTIDINE 20 MG TAB PEG SCH (08:12)
--- NOTE | 2019-12-06 09:12 | NUR ---
SPOKE WITH FATHER SHRUTHI, THIS MORNING ABOUT HIS NEED TO GO AND DO THE PAPERWORK FOR FOCUSED CARE IN [place], AND TO CALL WHEN THERE OR I WILL HAVE TO DISCHARGE BACK [place] [facility] [place] [facility]. CONTACTED FACILITY AND LET KNOW ABOUT CONVERSATION.
[2019-12-06] MEDS: DEXTROSE 5%/0.9% SOD CHL 1,000 ML IV SCH ×2 (11:12→19:45)
[2019-12-06] MEDS: ACETAMINOPHEN 325 MG/10 ML UDC PEG PRN ×2 (11:13→20:03)
--- NOTE | 2019-12-06 12:50 | NUR ---
s: no acute neurological changes in PATIENT NO SEIZURE Vs: stable tachycardic cta trached eomi pupils 5mm but react to direct light face symmetric does not track or look towards flashing light eyes wander moves arms spontaneously but not purposefully increased muscle tone in neck arms and legs toes upgpoing does not follow commands a/p anoxic brain injury, cerebellar injury, occipital and temporal lobe atrophy discussed case w/ family at length, patient in persistant vegetative state but may reach a degree of cognizance w/ time and therapy discussed transcranial direct current stim amantadine, dopaminergics, depakote, stimulants, ambien as therapeutic options but won't initiate at this time. discussed TIRR as rehab recovery option - EEG negative for seizure dc keppra patient will need 24 hour care, likely best case scenario, severe visual deficit, motor dysfunction and memory difficulty no evidence seizure disorder minimally conscious state vs vegetative state -once patient is medically stable can initiate neurotropics
--- NOTE | 2019-12-06 14:19 | Progress Note ---
DATE: 12/06/2019 SUBJECTIVE: Mr. Toth remains in intensive care unit. He is a little more alert and comfortable. Family and friends at the bedside. No new issues. REVIEW OF SYSTEMS: Could not be obtained. PHYSICAL EXAMINATION: GENERAL: He is currently alert, noncommunicative. VITAL SIGNS: Stable, afebrile. HEENT: Normocephalic, not icteric. NECK: Supple. CHEST: Few crackles bilateral. COR: S1, S2. No S3, S4, or murmur. ABDOMEN: Soft. Bowel sounds present. EXTREMITIES: No edema. IMPRESSION: 1. Healthcare-associated pneumonia, stable. To finish antibiotic. 2. Anoxic brain injury, status post trach. Prognosis is extremely guarded. 3. Recurrent aspiration pneumonia. 4. History of ATN, history of drug overdose, history of tracheostomy, currently all stable. We will follow. MD OSMAR Parsons/STEPHANIE /[id number]
--- NOTE | 2019-12-06 16:29 | NUR ---
Nutrition Intervention Note RD Recommendation(s) for Physician: -TF recommendation via peg tube: Continue Osmolite at 45 ml/hr advance as tolerate to goal rate of 65 ml/hr with 60 ml of water flushed every 4 hours. (1872 kcal, 86 gram protein, 1279 ml of fluid) -IVF management and water flushes per MD, recommend to d/c IVF when TF is advanced to goal rate if medically feasible. -Current D5NS is providing the pt with an additional 120 grams of dex and 408 kcal -Consider Arpit 1 packet BID to promote wound healing. Plan of Care: RD following, monitoring for tolerance and adequacy. Nutrition reason for involvement: follow up RD Assessment 12/05: Follow up. Pt continues on Osmolite 1.2 at 45 ml/hr, tolerating per RN. TF goal rate rec's of 65 ml/hr provided. Pt continues on Dextrose containing IVF providing an additional 408 kcal/day. No GI distress per RN. Current RD rec's remain appropriate. Pt pending transfer to SNF. Will continue to monitor. 12/01: Follow up: Pt has been transferred to the ICU. Osmolite 1.2 was observed running at 45 ml/hr, per nurse the pt is tolerating the TFs. Advised and recommended to continue TF to goal rate of 65 ml/hr to ensure the pt is meeting his energy and protein needs. Pt is meeting calorie needs with D5NS running at 100 ml/hr, but pt is not meeting their protein needs. Remains on trach, no pressors. Will continue to monitor. 11/26: Follow up. Pt has been tolerating tube feeding per RN note. Osmolite 1.2 is currently out of stock; therefore, Osmolite 1.0 is being substituted in the meantime. Recommend Osmolite 1.0 @ goal rate of 80 mL/hr until Osmolite 1.2 is in stock. Informed RN. Will continue to monitor. 11/22: 29 YOM seen within the IMCU. Pt was recently admitted, per nurse pt has trach and peg tube. Nurse reported the pt was on Novasource at 40 ml/hr with 300 ml of water flushed every 4 hours for 22 hours at his [place] (1760 kcal, 80 gram protein). Nurse reported the pt does not have hx of dialysis and it is not reported in PMH. Renal labs WNL-will recommend standard formula for now, please re consult RD if renal labs become abnormal. Pt was seen resting, no family at bedside. No past weights in EMR. Will continue to monitor. Principal Problems/Diagnoses: PMH: [place], Seizure Disorder, Chronic Back Pain, Anoxic brain injury/ oct 2019 GI: abdomen soft, non-tender LBM: 12/05 Skin: sacral stage III PU Labs: 12/05: Na 138, K 3.7, BUN 8, Cr 0.48, Gluc 117 Meds: KCl IVPB, abx, pepcid IVF: D5NS at 100 ml/hr (120 gram dex, 408 kcal) Ht: 68 in Wt: 124 lbs BMI: 18.9 kg/m^2 IBW: 154 lbs Malnutrition Evaluation 12/06/19 The patient does not meet criteria for a specified degree of malnutrition at this time. Will re-evaluate at follow-up as appropriate. Energy intake: -chronic tube feeder Weight loss: -unable to evaluate Fat loss: Mild Muscle loss: Mild Nutrition Prescription (Diet Order): NPO TF: Osmolite 1.2 at 45 ml/hr provides 1296 kcal, 60 gm protein. Total kcal/day with IVF= 1704 kcal Estimated Nutritional Needs: Calories:8854-0820 kcal/day (25- 35 kcal/kg/day) Weight used : CBW Protein : 56-84 protein/day (1-1.5 gram/kg/day ) Weight used: CBW Diet Adequacy: meeting > 75% of estimated kcal and protein needs. Diet Education Needs Assessment: Diet education not indicated, patient on temporary/transition diet. TF dependent. Nutrition Care Level: moderate Nutrition Diagnosis: Inadequate energy intake related to medical condition as evidenced by the pts needs for peg tube to meet nutritional needs. Goal: Patient will meet 75-100% of estimated needs by follow up Progress: progressing Interventions: TF - Composition, Rate, Route Monitoring/Evaluation: -Total energy intake, Total protein intake, Formula/Solution Signed: Johana Zelaya RD, LD, CNSC
[2019-12-06] MEDS: METOPROLOL TARTRATE INJ 1 MG/ML VIAL IV PRN ×2 (17:12→23:03)
[2019-12-06] MEDS: FLUCONAZOLE 100 MG/NS 50 ML 50 ML IV SCH (20:03)
[2019-12-07] VITALS (26 sets, daily range): BP systolic 122–162; BP diastolic 82–122
[2019-12-07] MEDS: METOPROLOL TARTRATE 50 MG TAB PEG SCH ×4 (00:39→17:37)
[2019-12-07] MEDS: DEXTROSE 5%/0.9% SOD CHL 1,000 ML IV SCH ×2 (01:10→15:32)
[2019-12-07] MEDS: VANCOMYCIN 300 ML IV SCH ×2 (02:15→15:32)
[2019-12-07] MEDS: ACETAMINOPHEN 325 MG/10 ML UDC PEG PRN ×2 (04:11→20:10)
[2019-12-07 05:20] LABS: BASOPHILS % 0.4 % (0.0-1.0); EOSINOPHILS # (AUTO) 0.2 (0.0-0.4); EOSINOPHILS % 2.2 % (0.0-6.0); HEMATOCRIT 35.5 % (38.2-49.6); HEMOGLOBIN 11.7 g/dL (14.0-18.0); LYMPHOCYTES # (AUTO) 1.3 (1.0-3.2); LYMPHOCYTES % 12.5 % (18.0-39.1); MONOCYTES # (AUTO) 0.8 (0.2-0.8); MONOCYTES % 7.6 % (4.4-11.3); NEUTROPHILS # (AUTO) 8.2 (2.1-6.9); NEUTROPHILS % 76.8 % (38.7-80.0); PLATELET COUNT 407 x10e3/uL (140-360); RED CELL DISTRIBUTION WIDTH 15.1 % (11.7-14.4)
[2019-12-07] MEDS: METRONIDAZOLE 250MG/NS 50ML 50 ML IV SCH ×3 (05:27→22:14)
[2019-12-07 05:41] LABS: ANION GAP 13.7 mmol/L (8-16); BLOOD UREA NITROGEN 8 mg/dL (7-26); BUN/CREATININE RATIO 17 (6-25); CALCIUM 9.1 mg/dL (8.4-10.2); CARBON DIOXIDE 22 mmol/L (22-29); CHLORIDE 105 mmol/L (98-107); CREATININE, SERUM 0.48 mg/dL (0.72-1.25); EST GLOMERULAR FILTRATION RATE > 60 ML/MIN (60-); GLUCOSE 130 mg/dL (74-118); POTASSIUM 3.7 mmol/L (3.5-5.1); SODIUM 137 mmol/L (136-145)
[2019-12-07] MEDS: ACETYLCYSTEINE 200 MG/ML 4ML VIAL INH SCH ×2 (06:58→18:50)
[2019-12-07] MEDS: ALBUTEROL SULF 0.083% NEB SOLN 3 ML NEB INH PRN ×4 (06:58→18:50)
[2019-12-07] MEDS: METOPROLOL TARTRATE INJ 1 MG/ML VIAL IV PRN ×2 (08:06→16:57)
[2019-12-07] MEDS: FAMOTIDINE 20 MG TAB PEG SCH (08:06)
[2019-12-07] MEDS: POTASSIUM CHLORIDE 20MEQ/15ML UDC NG SCH (08:06)
--- NOTE | 2019-12-07 08:14 | NUR ---
SPOKE WITH FATHER, FOCUSED CARE GAVE AWAY BE THIS MORNING. HE STATES HE WAS THERE AND NO ONE KNEW WHO HE WAS OR WHAT WAS GOING ON, TOLD HIM I WOULD HAVE TO SEND BACK TO [facility], FATHER REFUSED. HE STATES HE WILL FIND ANOTHER BUILDING FOR HIM TO GO TO TODAY, TOLD HIM TO CALL BACK AND GIVE INFORMATION. IF DOES NOT [facility] WILL TAKE OVER THE REFERRAL.
--- NOTE | 2019-12-07 08:55 | NUR ---
FATHER CALLED BACK WITH [facility], [facility], [facility], [facility]. I CALLED [facility] THEY DO NOT HAVE A PENDING BED BUT THEIR SISTER FACILITY MIGHT WHICH IS [facility], THEY DO ACCEPT TRACH AND PENDING, FAXED CLINICALS TO [phone], CALLED [facility] IT IS A DRUG REHAB, CALLED [facility] THEY DO NOT HAVE A PENDING BED AVAILABLE, CALLED [facility] THEY REQUIRE FIRST MONTH UP FRONT BUT DO NOT ACCEPT TRACH, CALLED [facility], THEY DO HAVE A PENDING BED AND ACCEPT TRACH. FAXED CLINICALS TO [phone] PH IS [phone], WAITING FOR ANSWER. SPOKE WITH DAD AND LET KNOW THAT I WILL TAKE THE FIRST TO ACCEPT, HE IS IN AGREEMENT WITH THAT.
--- NOTE | 2019-12-07 09:59 | NUR ---
SPOKE WITH ARTIE AT [facility], SHE CONFIRMS RECEIPT OF CLINICALS AND ASKED FOR SSN, GAVE TO HER. LET HER KNOW NEEDED ANSWER SOON POSSIBLE.
--- NOTE | 2019-12-07 12:02 | NUR ---
MS SILVERIO [facility] APS WORKER CAME TO HOSPITAL TO SEE PT, SHE RE-ENFORCES THAT SHE CANNOT MAKE THE FAMILY DO WHAT THEY NEED AND BELIEVES THE HOSPITAL CAN FILE A WARRANT TO BE ABLE TO MAKE DECISIONS FOR PT TO PLACE. I EDUCATED HER WE HAVE TO HAVE CHOICE AND EVEN THOUGH THERE IS NO POA THE FATHER IS THE NEXT OF KIN AND HAS THE RIGHT TO REFUSE PLACEMENT OPTION OF [facility]. GAVE THE INFORMATION ON ALL THE BUILDINGS I CALLED AND FAXED CLINICALS TO THIS MORNING AND SHE ASKED THAT WHOM EVER ACCEPTS THE PT TO PLEASE LET HER KNOW AND SHE WILL FOLLOW UP AFTER DISCHARGE.
--- NOTE | 2019-12-07 13:08 | NUR ---
JOEL ABDI CALLED AND DECLINED THE PATIENT.
--- NOTE | 2019-12-07 16:08 | NUR ---
CALLED [facility], THEY STATE THEY DID NOT RECEIVE [id number] TO STACEY. ALSO FORWARDED TO [facility] FOR PLACEMENT AT [facility]. REP PICKED UP PACKET.
[2019-12-07] MEDS: FLUCONAZOLE 100 MG/NS 50 ML 50 ML IV SCH (20:10)
[2019-12-08] VITALS (22 sets, daily range): BP systolic 130–171; BP diastolic 94–112
[2019-12-08] MEDS: METOPROLOL TARTRATE 50 MG TAB PEG SCH ×5 (00:37→23:05)
[2019-12-08] MEDS: VANCOMYCIN 300 ML IV SCH ×2 (02:56→14:36)
[2019-12-08] MEDS: DEXTROSE 5%/0.9% SOD CHL 1,000 ML IV SCH ×3 (02:57→19:30)
[2019-12-08] MEDS: METRONIDAZOLE 250MG/NS 50ML 50 ML IV SCH (06:24)
[2019-12-08] MEDS: FAMOTIDINE 20 MG TAB PEG SCH (08:57)
[2019-12-08] MEDS: POTASSIUM CHLORIDE 20MEQ/15ML UDC NG SCH (08:57)
[2019-12-08] MEDS: METOPROLOL TARTRATE INJ 1 MG/ML VIAL IV PRN ×2 (08:57→20:00)
[2019-12-08] MEDS: IPRATROPIUM BROMIDE 0.02% 2.5 ML NEB NEB PRN (11:00)
[2019-12-08] MEDS: ACETYLCYSTEINE 200 MG/ML 4ML VIAL INH SCH (11:00)
--- NOTE | 2019-12-08 11:12 | NUR ---
PER FATHER REQUEST SENT CLINICALS TO [facility] [phone] SENT TO [facility] [phone]. CALLED [facility] AND WAS TOLD IS IN PROCESS. STILL PENDING AUTH FROM [facility], SPOKE WITH FATHER FAVIAN AND LET KNOW UPDATE AND WHOMEVER TAKES FIRST WE WILL SET UP TRANSPORT. HE AGREED
--- NOTE | 2019-12-08 11:15 | NUR ---
FATHER FAVIAN STATES IF CAN GET CLOSER TO [facility] NOW PROBABLY BETTER HE THINKS THE GIRLFRIEND IS PHASING OUT AND HE STATES HE NOW WANTS CLOSE POSSIBLE TO HIM. LET HIM KNOW STILL WORKING ON ALL THE REFERRALS.
[2019-12-08] MEDS: ACETAMINOPHEN 325 MG/10 ML UDC PEG PRN (12:05)
--- NOTE | 2019-12-08 15:43 | NUR ---
SPOKE WITH [facility] PT DENIED. SPOKE WITH [facility], THEY WERE READY TO ACCEPT PT BUT FATHER STATED DIDNT WANT HIM TO GO THERE BECAUSE HE WANTS HIM SKILLED AND TO DO THERAPY, CALLED HIM AND EXPLAINED TO HIM THAT HE DOES NOT HAVE THE BENEFITS FOR THAT AND HE IS MEDICAID PENDING FOR A FACILITY, HE STATES THAT HE WILL CONTACT THEM AND COMPLETE PAPERWORK FOR TRANSFER IN THE MORNING. CALLED STACEY AT FACILITY [phone] AND LET HER KNOW TO CALL HIM AND COMPLETE PAPERWORK AND GET ME THE MOT FOR IN THE MORNING TO TRANSPORT.
--- NOTE | 2019-12-08 19:00 | NUR ---
Report received. Assumed care. Assessment done. See interventions. On 35% trach collar. Freq suctioning required. PEG tube with Osmolite @ 45 ml/hr with 60ml of H2O Q4H.
--- NOTE | 2019-12-08 20:00 | NUR ---
HR 130 & BP 167/106. Lopressor IV given.
[2019-12-08] MEDS: FLUCONAZOLE 100 MG/NS 50 ML 50 ML IV SCH (20:09)
--- NOTE | 2019-12-08 20:30 | NUR ---
IV to right hand infiltrated. Hand swollen. Dcd with catheter intact. Restarted to left forearm with 20ga catheter.
[2019-12-09] VITALS (25 sets, daily range): BP systolic 139–181; BP diastolic 93–134
[2019-12-09] MEDS: VANCOMYCIN 300 ML IV SCH (02:06)
[2019-12-09] MEDS: METOPROLOL TARTRATE 50 MG TAB PEG SCH ×3 (06:15→18:20)
--- NOTE | 2019-12-09 06:16 | NUR ---
Freq suctioning all night. Sats dropped to the 80s at one point even with lavaging and suctioning. RT lavaged and suctioned with good results. Sats went up in the mid to high 90s.
[2019-12-09] MEDS: DEXTROSE 5%/0.9% SOD CHL 1,000 ML IV SCH ×2 (07:07→18:43)
[2019-12-09] MEDS: ACETYLCYSTEINE 200 MG/ML 4ML VIAL INH SCH ×3 (07:29→22:15)
[2019-12-09] MEDS: IPRATROPIUM BROMIDE 0.02% 2.5 ML NEB NEB PRN ×3 (07:29→22:15)
[2019-12-09] MEDS: FAMOTIDINE 20 MG TAB PEG SCH (09:28)
[2019-12-09] MEDS: POTASSIUM CHLORIDE 20MEQ/15ML UDC NG SCH (09:28)
[2019-12-09] MEDS: METOPROLOL TARTRATE INJ 1 MG/ML VIAL IV PRN ×3 (09:52→20:13)
--- NOTE | 2019-12-09 15:53 | NUR ---
TRANSPORT NEEDS TO BE SET UP FOR MANAGEMENT LIAISON AT 4AM INTERMEDIATE FACILITY DISCHARGE INFORMATION PATIENT HAS BEEN ACCEPTED TO: NAME: GUSTAVO BUTT AT [facility] ADDRESS:[address] ACCEPTING GLASS GLAZIER: JULIANA AYALA MD: GARRICK ROOM: 237 NURSE CALL REPORT TO: [phone] IMM SIGNED AND OBTAINED (if applicable): NA THE FOLLOWING DOCUMENTS MUST ACCOMPANY PATIENT FOR TRANSFER: COPIED CHART: PACKET
--- NOTE | 2019-12-09 16:55 | NUR ---
PLEASE SET UP TRANSPORT BETWEEN 5 AND 6 AM RT TEAM AT FACILITY WILL BE THERE AT 8 AM TO MEET PT. THANK YOU!!!! NOTIFIED HOUSE SUP.
[2019-12-09] MEDS: ACETAMINOPHEN 325 MG/10 ML UDC PEG PRN (18:00)
[2019-12-10] VITALS (7 sets, daily range): BP systolic 136–165; BP diastolic 87–110
[2019-12-10] MEDS: METOPROLOL TARTRATE 50 MG TAB PEG SCH ×2 (00:26→05:14)
--- NOTE | 2019-12-10 03:46 | NUR ---
CALL PLACED TO [facility], TRANSPORT REQUESTED TO [facility] WITH PATIENT TO ARRIVE AT THAT FACILITY BY [phone]
--- NOTE | 2019-12-10 05:03 | NUR ---
Report called to Yusuf at [facility].
--- NOTE | 2019-12-10 06:30 | NUR ---
Per EMS to [facility] in [place].
== END 2019-12-10 06:36 | DRG 871 ==
LOC: ER 20:51 → ERHOLD 11-22 02:07 → IMCU 11-22 08:52 → MED/SURG3 11-23 22:06 → ICU 11-28 03:58
PROC: 5A1945Z Respiratory Ventilation, 24-96 Consecutive Hours (ICD-10-PCS; principal; 2019-11-28)
DX: A41.9 Sepsis, unspecified organism (principal); L89.153 Pressure ulcer of sacral region, stage 3; J69.0 Pneumonitis due to inhalation of food and vomit; J96.21 Acute and chronic respiratory failure with hypoxia; G93.6 Cerebral edema; G93.1 Anoxic brain damage, not elsewhere classified; R40.3 Persistent vegetative state; N17.9 Acute kidney failure, unspecified; Z16.342 Resistance to multiple antimycobacterial drugs; Z88.0 Allergy status to penicillin; T42.6X5A Adverse effect of other antiepileptic and sedative-hypnotic drugs, initial encounter; Z93.1 Gastrostomy status; F17.210 Nicotine dependence, cigarettes, uncomplicated; R13.10 Dysphagia, unspecified; J20.9 Acute bronchitis, unspecified; Z93.0 Tracheostomy status; G31.89 Other specified degenerative diseases of nervous system; T17.990A Other foreign object in respiratory tract, part unspecified in causing asphyxiation, initial encounter; R61 Generalized hyperhidrosis; R79.89 Other specified abnormal findings of blood chemistry; D64.9 Anemia, unspecified; E87.6 Hypokalemia; B96.89 Other specified bacterial agents as the cause of diseases classified elsewhere; R53.81 Other malaise
CPT/HCPCS: 31720; 36415; 36600; 70450; 70551; 71045; 74177; 76705; 80048; 80053; 80076; 80202; 81001; 82805; 83605; 83690; 83735; 84436; 84443; 84479; 85025; 87040; 87070; 87086; 87186; 87205; 87400; 94002; 94640; 95816; 96360; 99285; J0692; J0696; J1100; J1450; J1650; J1885; J3370; J7030; J7042; J7050; J7070; J7121; Q9967